=== PATIENT | female | born 1960 | race Caucasian/White ===

== ENCOUNTER 2016-03-13 14:43 | Emergency (ER) | payer BC ==
[2016-03-13 14:52] VITALS: BP 141/92; PULSE 80; TEMP 98; BMI 24.2
[2016-03-13] MEDS ORDERED: OXYCODONE/APAP 5/325MG COMBO TABLET PO ONE (15:59)
[2016-03-13] MEDS ORDERED: diazePAM 5 MG TABLET PO ONE (15:59)
[2016-03-13] MEDS ORDERED: ACETAMINOPHEN 325 MG TABLET (FP) PO ONE (16:00)
--- NOTE | 2016-03-13 16:09 | PDOC ---
History of Present Illness - General Chief Complaint: Back Pain Stated Complaint: BACK PAIN Time Seen by Provider: 03/13/16 15:47 History Source: Patient Exam Limitations: No Limitations - History of Present Illness Initial Comments: 03/13/16 16:10 55 y/o female presents to the ED with sudden onset of low back pain after bending over while taking off her socks. Patient states has had low back pain like this in the past but not to this extent and with no radiation down her right leg. Patient states did hear a popping sound when episode occurred and has been taking Motrin with no effect. Patient denies any saddle anesthesia, incontinence, weakness in the lower extremities, but does state pain is worsened with standing and ambulation. Patient states she is a constant aching to her lower back and sharp shocklike pains down her right leg with ambulation intermittently. Occurred: reports: just prior to arrival Severity: reports: moderate Pain Location: reports: back Associated Symptoms (Fall): trouble walking Past History - Past Medical History Allergies/Adverse Reactions: Allergies Allergy/AdvReac Type Severity Reaction Status Date / Time No Known Allergies Allergy Verified 03/13/16 14:51 Home Medications: Ambulatory Orders NK [No Known Home Medication] 01/30/14 Hypercholesterolemia: Yes Thyroid Disease: No - Immunization History Immunization Up to Date: Yes - Psycho/Social/Smoking Cessation Hx Anxiety: No Suicidal Ideation: No Smoking History: Never smoked Number of Cigarettes Smoked Daily: 2 If you are a former smoker, when did you quit?: 2010 Hx Alcohol Use: No Drug/Substance Use Hx: No Substance Use Type: None Patient Lives Alone: No Lives with/in: spouse/SO Trauma Specific PMHX - Complaint Specific PMHX Back Injury: Yes Review of Systems - Review of Systems Able to Perform ROS?: Yes Constitutional: No: Symptoms Reported HEENTM: No: Symptoms Reported Respiratory: No: Symptoms reported Cardiac (ROS): No: Symptoms Reported ABD/GI: No: Symptoms Reported : No: Symptoms Reported Musculoskeletal: Yes: Back Pain (lower), Muscle Pain (rt lower back) Neurological: No: Symptoms reported *Physical Exam - Vital Signs Last Vital Signs Temp Pulse Resp BP Pulse Ox 98.0 F 80 20 141/92 99 03/13/16 14:49 03/13/16 14:49 03/13/16 14:49 03/13/16 14:49 03/13/16 14:49 - Physical Exam General Appearance: Yes: Nourished, Appropriately Dressed, Mild Distress Neck: positive: Supple. negative: Decreased range of motion Cardiovascular: positive: Regular Rhythm, Regular Rate. negative: Murmur Gastrointestinal/Abdominal: positive: Soft. negative: Tenderness Musculoskeletal: positive: Vertebral Tenderness (l4-5 and right paraspinous muscle) Integumentary: positive: Normal Color, Warm, Moist. negative: Swelling, Ecchymosis Neurologic: positive: Motor Strength 5/5 (ambulatory) Medical Decision Making - Medical Decision Making 03/13/16 16:15 P with lower back pain radiating down her right leg. Pt with likely strain vs herniation. Pt ordered for percocet and valium. Pt also ordered for xray of lumbar spine 03/13/16 18:44 Pt became nauseated after the percocet. Pt ordered for zofran which did alleviate s/s. Pt s xray showed disc narrowing between l4-5 with spondylosis at multiple levels. Pt will be discharged home to follow up with ortho. Pt given rx for flexeril and tramdol. *DC/Admit/Observation/Transfer Diagnosis at time of Disposition: Osteoarthritis of lumbar spine Qualifiers: Spinal osteoarthritis complication: unspecified spinal osteoarthritis Qualified Code(s): M47.816 - Spondylosis without myelopathy or radiculopathy, lumbar region - Discharge Dispostion Disposition: HOME Condition at time of disposition: Good - Referrals Referrals: Richy Scott MD [Primary Care Provider] - Richy Park MD [Staff Physician] - - Patient Instructions Printed Discharge Instructions: DI for Low Back Pain Additional Instructions: Pleas take medication as needed for pain. Apply ice to area x 3 days. Follow up with referred physician. Rest.
[2016-03-13] MEDS ORDERED: ACETAMINOPHEN 325 MG TABLET (FP) ONE (16:10)
[2016-03-13] MEDS ORDERED: OXYCODONE/APAP 5/325MG COMBO TABLET ONE (16:11)
[2016-03-13] MEDS ORDERED: diazePAM 5 MG TABLET ONE (16:11)
[2016-03-13] MEDS ORDERED: ONDANSETRON *ODT* 4 MG TABLET ONE (17:40)
[2016-03-13] MEDS ORDERED: ONDANSETRON *ODT* 4 MG TABLET SL ONE (17:42)
== END 2016-03-13 18:56 | disposition home or self-care (01) ==
LOC: JERFT 14:43
DX: S39.012A Strain of muscle, fascia and tendon of lower back, initial encounter (principal); M47.896 Other spondylosis, lumbar region; X50.0XXA Overexertion from strenuous movement or load, initial encounter; Y93.89 Activity, other specified; Y92.032 Bedroom in apartment as the place of occurrence of the external cause
CPT/HCPCS: 72100-TC; 99281-25

== ENCOUNTER 2016-04-07 22:08 | Emergency (ER) | payer BC ==
[2016-04-07 22:24] VITALS: BP 140/86; PULSE 120; BMI 25.8
[2016-04-07] MEDS ORDERED: ACETAMINOPHEN 325 MG TABLET (FP) PO ONE (23:22)
[2016-04-07] MEDS ORDERED: ACETAMINOPHEN 325 MG TABLET (FP) ONE (23:26)
[2016-04-08] MEDS ORDERED: AZITHROMYCIN 250 MG TABLET (FP) PO ONE (00:33)
[2016-04-08] MEDS ORDERED: OSELTAMIVIR PHOSPHATE 75 MG CAPSULE PO ONE (00:33)
[2016-04-08] MEDS ORDERED: OSELTAMIVIR PHOSPHATE 75 MG CAPSULE ONE (00:36)
[2016-04-08 00:41] VITALS: TEMP 100.8
[2016-04-08] MEDS ORDERED: AZITHROMYCIN 250 MG TABLET (FP) ONE (00:42)
--- NOTE | 2016-04-08 00:46 | PDOC ---
History of Present Illness - General Chief Complaint: Cold Symptoms Stated Complaint: COLD SYMPTOMS Time Seen by Provider: 04/07/16 22:47 History Source: Patient Exam Limitations: No Limitations - History of Present Illness Initial Comments: 04/07/16 22:50 55yo Female patient presents to ED c/o fever (103), h/a, coughing, body ache, "lungs hurt," x 2 days getting worse. Patient states she got her flu shot this year as well. OTC Motrin take with minimal relief, last dose (12 noon). Patient c/o chest pain with deep breath. Denies any other complaints at this time. Timing/Duration: reports: constant, getting worse Severity: reports: moderate Possible Cause: Yes: illness exposure Modifying Factors: worse with: activity, albuterol inhaler, albuterol nebulizer , antibiotics, coughing, lying down, oxygen, rest, other Associated Symptoms: reports: cough, fever/chills, headache, muscle aches. denies: denies symptoms, chest pain/soreness, dizziness, earache, facial pain, lightheadedness, nasal congestion, nasal drainage, shortness of breath, sinus infection, sore throat, wheezing, other Past History - Travel Traveled outside of the country in the last 30 days: No Close contact w/someone who was outside of country & ill: No - Past Medical History Allergies/Adverse Reactions: Allergies Allergy/AdvReac Type Severity Reaction Status Date / Time codeine Allergy Verified 04/07/16 22:17 Home Medications: Ambulatory Orders Rosuvastatin Calcium [Crestor] 10 mg PO HS 04/07/16 Azithromycin [Zithromax -] 250 mg PO DAILY #4 tablet 04/08/16 Cyclobenzaprine HCl [Flexeril -] 10 mg PO TID PRN #21 tablet 04/08/16 Ibuprofen [Motrin -] 600 mg PO Q6H PRN #30 tablet 04/08/16 Oseltamivir Phosphate [Tamiflu -] 75 mg PO BID #10 capsule 04/08/16 Hypercholesterolemia: Yes Thyroid Disease: No - Immunization History Immunization Up to Date: Yes - Psycho/Social/Smoking Cessation Hx Anxiety: No Suicidal Ideation: No Smoking History: Never smoked Number of Cigarettes Smoked Daily: 2 If you are a former smoker, when did you quit?: 2010 Hx Alcohol Use: No Drug/Substance Use Hx: No Substance Use Type: None Respiratory Specific PMHX - Complaint Specific PMHX Angina: No Bronchitis: No Pneumonia: No Pulmonary Embolus: No TB (Tuberculosis): No Review of Systems - Review of Systems Able to Perform ROS?: Yes Is the patient limited Urdu proficient: No Constitutional: Yes: Fever, Weakness. No: Chills HEENTM: No: Blurred Vision, Double Vision, Nose Congestion, Throat Pain, Difficulty Swallowing Respiratory: Yes: Cough. No: Orthopnea, Shortness of Breath, Stridor, Wheezing , Productive cough, Hemoptysis Cardiac (ROS): Yes: Chest Pain. No: Lightheadedness, Palpitations, Syncope, Chest Tightness ABD/GI: No: Constipated, Diarrhea, Nausea, Poor Appetite, Poor Fluid Intake, Vomiting : No: Dysuria, Flank Pain, Hematuria Musculoskeletal: Yes: Back Pain, Joint Pain, Muscle Weakness Integumentary: No: Bruising, Rash Neurological: Yes: Headache. No: Numbness, Paresthesia, Seizure, Tremors, Weakness, Unsteady Gait, Ataxia, Dizziness All Other Systems: Reviewed and Negative *Physical Exam - Vital Signs Last Vital Signs Temp Pulse Resp BP Pulse Ox 103.2 F H 120 H 18 140/86 97 04/07/16 22:18 04/07/16 22:18 04/07/16 22:18 04/07/16 22:18 04/07/16 22:18 - Physical Exam General Appearance: Yes: Nourished, Appropriately Dressed, Apparent Distress, Moderate Distress. No: Mild Distress, Severe Distress HEENT: positive: EOMI, SRUTHI, Normal ENT Inspection, Normal Voice, Symmetrical, TMs Normal, Pharynx Normal. negative: Tonsillar Exudate, Tonsillar Erythema, TM Bulging, TM Dull, TM Erythema Neck: positive: Trachea midline, Supple. negative: Decreased range of motion, Stridor, Lymphadenopathy (R), Lymphadenopathy (L) Respiratory/Chest: positive: Lungs Clear, Other (Coarse (bronchial) breath sounds). negative: Crackles, Rales, Rhonchi, Stridor, Wheezing, Hyperresonant Cardiovascular: positive: Regular Rhythm, Regular Rate. negative: Edema, JVD, Murmur Gastrointestinal/Abdominal: positive: Normal Bowel Sounds, Soft. negative: Distended, Guarding, Rebound, Tenderness Lymphatic: negative: Adenopathy Musculoskeletal: positive: Normal Inspection. negative: CVA Tenderness Extremity: positive: Normal Capillary Refill, Normal Inspection, Normal Range of Motion. negative: Pedal Edema, Swelling Integumentary: positive: Normal Color, Dry, Warm. negative: Rash Neurologic: positive: chilling hood operator II-XII NML intact, Fully Oriented, Alert, Normal Mood/ Affect, Normal Response, Motor Strength 07/01 ED Treatment Course - ADDITIONAL ORDERS Additional order review: 04/07/16 23:40 Influenza Types A,B Antigen (JAYDEN) - Final Nasopharyngeal Swab - Final - RADIOLOGY Radiology Studies Ordered: Category Date Time Status CHEST PA & LAT [RAD] Stat Radiology 04/07/16 23:22 Taken - Medications Given in the ED: ED Medications Discontinued Medications Generic Name Dose Route Start Last Admin Trade Name Freq PRN Reason Stop Dose Admin Acetaminophen 650 mg 04/07/16 23:22 04/07/16 23:25 Tylenol - PO 04/07/16 23:23 650 mg ONCE ONE Administration *DC/Admit/Observation/Transfer Diagnosis at time of Disposition: Influenza, Bronchitis - Discharge Dispostion Disposition: HOME Condition at time of disposition: Stable Admit: No - Prescriptions Prescriptions: Cyclobenzaprine HCl [Flexeril -] 10 mg PO TID PRN #21 tablet PRN Reason: muscle pain Ibuprofen [Motrin -] 600 mg PO Q6H PRN #30 tablet PRN Reason: Mild Pain Oseltamivir Phosphate [Tamiflu -] 75 mg PO BID #10 capsule Azithromycin [Zithromax -] 250 mg PO DAILY #4 tablet - Patient Instructions Printed Discharge Instructions: Influenza, DI for Acute Bronchitis, DI for Muscle Weakness Additional Instructions: FOLLOW UP WITH YOUR PRIMARY CARE PROVIDER THIS WEEK. CALL TO SCHEDULE APPOINTMENT. TAKE MEDICATIONS PRESCRIBED. GET LOTS OF REST. NO WORK X 2 DAY, MUST BE WITHOUT FEVER TO RETURN TO WORK. IF FEVER PERSIST, FOLLOW UP WITH PCP. RETURN IF ANY CONCERNS FOR FURTHER EVALUATION. Print Language: LEBANESE - Post Discharge Activity Work/School Note: Back to Work
== END 2016-04-08 01:10 | disposition home or self-care (01) ==
LOC: JER 22:08
DX: J09.X2 Influenza due to identified novel influenza A virus with other respiratory manifestations (principal); J20.9 Acute bronchitis, unspecified
CPT/HCPCS: 71020-TC; 87804; 99282-25

== ENCOUNTER 2016-06-15 13:07 | Emergency (ER) | payer BC ==
[2016-06-15 13:14] VITALS: BP 140/81; PULSE 77; TEMP 98.1; BMI 25.8
[2016-06-15] MEDS ORDERED: KETOROLAC TROMETHAMINE 60 MG/2 ML VIAL IM ONE (14:01)
[2016-06-15] MEDS ORDERED: KETOROLAC TROMETHAMINE 60 MG/2 ML VIAL ONE (14:11)
--- NOTE | 2016-06-15 14:18 | PDOC ---
History of Present Illness - General Chief Complaint: Pain, Acute Stated Complaint: LT KNEE SWELLING Time Seen by Provider: 06/15/16 13:23 - History of Present Illness Initial Comments: 06/15/16 14:14 Pt. is a 55 y/o female with PMH of HDL, spinal arthritis and spinal stenosis, who presents to fast track with a complaint of L knee swelling. Pt. states that she was walking in a grocery store this morning when she felt a sudden "warmth" in her knee. Shortly after she felt the warmth, her knee became swollen and painful. She has pain when trying to put weight on the affected knee or when bending the knee. She iced her knee at home and came to the ED for further evaulation. Denies trauma, falling, sudden movements or history of gout. Past History - Past Medical History Allergies/Adverse Reactions: Allergies Allergy/AdvReac Type Severity Reaction Status Date / Time codeine Allergy Verified 06/15/16 13:13 Home Medications: Ambulatory Orders Rosuvastatin Calcium [Crestor] 10 mg PO ASDIR 06/15/16 Hypercholesterolemia: Yes Thyroid Disease: No - Immunization History Immunization Up to Date: Yes - Psycho/Social/Smoking Cessation Hx Anxiety: No Suicidal Ideation: No Smoking History: Never smoked Number of Cigarettes Smoked Daily: 2 If you are a former smoker, when did you quit?: 2010 Information on smoking cessation initiated: No Hx Alcohol Use: No Drug/Substance Use Hx: No Substance Use Type: None *Physical Exam - Vital Signs Last Vital Signs Temp Pulse Resp BP Pulse Ox 98.1 F 77 18 140/81 99 06/15/16 13:12 06/15/16 13:12 06/15/16 13:12 06/15/16 13:12 06/15/16 13:12 - Physical Exam Comments: 06/15/16 14:18 GENERAL: NAD, laying on bed with knee in extension. Obvious effusion MUSCULOSKELETAL Obvious gross swelling of left knee. L knee normal range of motion, but pain with flexion and extension. Normal range of motion at all other joints. No redness, or warmth coming from the knee. No bony deformities or tenderness. No CVA tenderness. EXTREMITIES: 2+ popliteal pulses. No cyanosis. No clubbing. No edema. No calf tenderness. SKIN: Warm and dry. Normal capillary refill. No rashes. No jaundice. NEUROLOGICAL: Alert, awake, appropriate. Cranial nerves 2-12 intact. No deficits to light touch and temperature in face, upper extremities and lower extremities. No motor deficits in the in face, upper extremities and lower extremities. Normoreflexic in the upper and lower extremities. Normal speech. Toes are down- going bilaterally. Gait is normal without ataxia. ED Treatment Course - RADIOLOGY Radiology Studies Ordered: Category Date Time Status KNEE 3 POS-LEFT [RAD] Stat Radiology 06/15/16 14:10 Ordered Medical Decision Making - Medical Decision Making 06/15/16 16:26 X-ray shows no acute fracture or trauma. Knee effusion most likely. Will refer to orthopedics for further management. Will discharge home with knee immobilizer and eliezer wrap. Explained discharge instructions to pt and she understands instructions. All questions answered at this time. *DC/Admit/Observation/Transfer Diagnosis at time of Disposition: Knee effusion, left - Discharge Dispostion Disposition: HOME Condition at time of disposition: Stable Admit: No - Referrals Referrals: iRchy Scott MD [Primary Care Provider] - Jesse Gant MD [Staff Physician] - - Patient Instructions Printed Discharge Instructions: DI for Knee Effusion Additional Instructions: You have a knee effusion. There is no evidence of fracture on x-ray. Wear an ELIEZER wrap on your knee for comfort and support. Ice and elevated the knee at home. Use ibuprofen as needed for pain not to exceed 3000mg a day. Follow up with orthopedics within one week. Return to the ED if the swelling gets worse, you develop fevers or chills, or if the pain becomes unbearable
== END 2016-06-15 15:08 | disposition home or self-care (01) ==
LOC: JERFT 13:07
PROC: 2W3MXYZ Immobilization of Left Lower Extremity using Other Device (ICD-10-PCS; principal; 2016-06-15)
DX: M25.462 Effusion, left knee (principal)
CPT/HCPCS: 73562-TC-LT; 99281-25

== ENCOUNTER 2016-07-25 16:19 | Emergency (ER) | payer BC ==
[2016-07-25 16:30] VITALS: TEMP 97.4; BMI 26.3
[2016-07-25] MEDS ORDERED: ASPIRIN 81 MG CHEWABLE TABLETS PO ONE (16:55)
[2016-07-25] MEDS ORDERED: NITROGLYCERIN SUBLINGUAL 1/150 0.4 MG TAB SL ONE (16:55)
--- NOTE | 2016-07-25 16:55 | PDOC ---
History of Present Illness <Shruthi Wei - Last Filed: 07/25/16 19:37> <RichyJuniekhushboo Weeks - Last Filed: 07/26/16 01:59> - General Chief Complaint: Chest Pain Stated Complaint: CHEST PAIN Time Seen by Provider: 07/25/16 16:48 - History of Present Illness Initial Comments: 07/25/16 19:37 Patient is a 55 year old female with significant medical hx of HLD who is presenting to the ED with chest pain, diaphoresis and nausea. Today the patient was a passenger in a car when she developed a sudden onset of left sided chest pain at 3:18 PM. She states that since then, her chest pain has been constant and radiating to her left jaw and left arm. Patient reports her chest pain is constant with intermittent episodes of sharp, shooting pain. The patient reports associated left facial numbness/tingling, nausea, diaphoresis, and shortness of breath. She denies any vomiting, cough, or lightheadedness. Patient had recent appointment with dynamics ax solution architect a few weeks ago for palpitations and abnormal ECG. The patient is scheduled to have upcoming stress test and echocardiogram. Surgical Hx: hysterectomy Social Hx: Former tobacco smoker, quit 5 years ago after smoking for 30-40 years. PCP: Richy Scott MD [employer] Pak Machine Operator: Jesse Saleem MD ([facility]) (Shruthi Wei) Past History <Shruthi Wei - Last Filed: 07/25/16 19:37> - Past Medical History Hypercholesterolemia: Yes Thyroid Disease: No - Immunization History Immunization Up to Date: Yes - Psycho/Social/Smoking Cessation Hx Anxiety: No Suicidal Ideation: No Smoking History: Never smoked Have you smoked in the past 12 months: No Number of Cigarettes Smoked Daily: 2 If you are a former smoker, when did you quit?: 2010 Information on smoking cessation initiated: No Hx Alcohol Use: No Drug/Substance Use Hx: No Substance Use Type: None <Junie Lockhart - Last Filed: 07/26/16 01:59> - Past Medical History Allergies/Adverse Reactions: Allergies Allergy/AdvReac Type Severity Reaction Status Date / Time codeine Allergy Verified 07/25/16 16:25 Home Medications: Ambulatory Orders Rosuvastatin Calcium [Crestor] 10 mg PO ASDIR 06/15/16 Cardiac Specific PMH - Complaint Specific PMHX Angina: No Pulmonary Embolus: No <Junie Lockhart - Last Filed: 07/26/16 01:59> Review of Systems <Shruthi Wei - Last Filed: 07/25/16 19:37> <Junie Lockhart - Last Filed: 07/26/16 01:59> - Review of Systems Comments:: 07/25/16 19:40 CONSTITUTIONAL: Present: diaphoresis Absent: fever, chills, generalized weakness, malaise, loss of appetite HEENT: Absent: rhinorrhea, nasal congestion, throat pain, throat swelling, difficulty swallowing, mouth swelling, ear pain, eye pain, visual changes CARDIOVASCULAR: Present: chest pain with radiation to jaw and left arm Absent: syncope, palpitations, irregular heart rate, lightheadedness, peripheral edema RESPIRATORY: Present: shortness of breath Absent: cough, dyspnea with exertion, orthopnea, wheezing, stridor, hemoptysis GASTROINTESTINAL: Present: nausea Absent: abdominal pain, abdominal distension, vomiting, diarrhea, constipation, melena, hematochezia GENITOURINARY: Absent: dysuria, frequency, urgency, hesitancy, hematuria, flank pain, genital pain MUSCULOSKELETAL: Absent: myalgia, arthralgia, joint swelling SKIN: Absent: rash, itching, pallor HEMATOLOGIC/IMMUNOLOGIC: Absent: easy bleeding, easy bruising, lymphadenopathy, frequent infections ENDOCRINE: Absent: unexplained weight gain, unexplained weight loss, heat intolerance, cold intolerance NEUROLOGIC: Present: left sided facial tingling and numbness Absent: headache, focal weakness, unsteady gait, seizure, mental status changes , bladder or bowel incontinence. PSYCHIATRIC: Absent: anxiety, depression, suicidal or homicidal ideation, hallucinations (EribertoShruthi) *Physical Exam <Shruthi Wei - Last Filed: 07/25/16 19:37> <Junie Lockhart - Last Filed: 07/26/16 01:59> - Vital Signs Last Vital Signs Temp Pulse Resp BP Pulse Ox 97.4 F L 90 14 121/82 98 07/25/16 21:53 07/26/16 01:40 07/26/16 01:40 07/26/16 01:40 07/26/16 01:40 - Physical Exam Comments: 07/25/16 19:42 GENERAL: Well developed, well nourished. Awake and alert. No acute distress. HEENT: Normocephalic, atraumatic. PERRLA, EOMI. No conjunctival pallor. Sclera are non- icteric. Moist mucous membranes. Oropharynx is clear. NECK: Supple. Full ROM. No JVD. Carotid pulses 2+ and symmetric, without bruits. No thyromegaly. No lymphadenopathy. CARDIOVASCULAR: Regular rate and rhythm. No murmurs, rubs, or gallops. Distal pulses are 2+ and symmetric. PULMONARY: No evidence of respiratory distress. Lungs clear to auscultation bilaterally. No wheezing, rales or rhonchi. ABDOMINAL: Protuberant. Soft. Non-tender. Non-distended. No rebound or guarding. No organomegaly. Normoactive bowel sounds. MUSCULOSKELETAL: Normal range of motion at all joints. No bony deformities or tenderness. No CVA tenderness. EXTREMITIES: No cyanosis. No clubbing. No edema. No calf tenderness. SKIN: Warm and dry. Normal capillary refill. No rashes. No jaundice. NEUROLOGICAL: Alert, awake, appropriate. Cranial nerves 2-12 intact. Normal speech. Gait is normal without ataxia. PSYCHIATRIC: Cooperative. Good eye contact. Appropriate mood and affect. (Shruthi Wei) ED Treatment Course - LABORATORY CBC & Chemistry Diagram: 07/25/16 18:20 07/25/16 18:27 <Shruthi Wei - Last Filed: 07/25/16 19:37> - LABORATORY CBC & Chemistry Diagram: 07/25/16 18:20 07/25/16 18:27 <Junie Lockhart - Last Filed: 07/26/16 01:59> - ADDITIONAL ORDERS Additional order review: Laboratory Results 07/26/16 07/25/16 07/25/16 00:17 18:27 18:20 INR 1.03 Sodium 139 Potassium 4.8 D Chloride 103 Carbon Dioxide 28 Anion Gap 8 BUN 17 Creatinine 0.8 Creat Clearance w eGFR > 60 Random Glucose 89 Calcium 10.2 H Magnesium 2.8 H Total Bilirubin 0.4 D AST 30 D ALT 43 D Alkaline Phosphatase 123 H Creatine Kinase 111 119 Troponin I < 0.02 < 0.02 Total Protein 8.0 Albumin 4.3 Triglycerides 367 H Cholesterol 232 H Total LDL Cholesterol 132 H HDL Cholesterol 60 05/29/17 18:20 RBC 4.70 MCV 90.2 MCHC 34.0 RDW 13.0 MPV 7.9 Neutrophils % 57.6 D Lymphocytes % 33.3 D Monocytes % 6.9 Eosinophils % 1.4 Basophils % 0.8 - RADIOLOGY Radiology Studies Ordered: Category Date Time Status CHEST X-RAY PORTABLE* [RAD] Stat Radiology 07/25/16 16:55 Taken - Medications Given in the ED: ED Medications Discontinued Medications Generic Name Dose Route Start Last Admin Trade Name Laxmi PRN Reason Stop Dose Admin Al Hydroxide/Mg Hydroxide 30 ml 07/25/16 16:56 07/25/16 17:10 Mylanta Oral Suspension - PO 07/25/16 16:57 30 ml ONCE ONE Administration Aspirin 162 mg 07/25/16 16:55 07/25/16 17:10 Asa - PO 07/25/16 16:56 162 mg ONCE ONE Administration Nitroglycerin 0.4 mg 07/25/16 16:55 07/25/16 17:10 Nitrostat - SL 07/25/16 16:56 0.4 mg ONCE ONE Administration Medical Decision Making <Shruthi Wei - Last Filed: 07/25/16 19:37> <Junie Lockhart - Last Filed: 07/26/16 01:59> - Medical Decision Making 07/26/16 01:49 -repeat Blood pressure is about 121/80 Patient has been chest pain-free shortly after her arrival. She DENIES ever being short of breath HPI she has had a h/o palpitations over past months and has an appt for ECHO and STRESS TEST in a few weeks PMH hyperlipidemia on crestor Second EKG, unchanged from prior - cxr no ptx,no effusions,no congestion,infiltrates - 2 sets of negative cardiac enzymes 07/26/16 01:56 plan- follow up with cardilogist -pt to call her dynamics ax solution architect and try to be seen this week (Junie Lockhart) *DC/Admit/Observation/Transfer <Shruthi Wei - Last Filed: 07/25/16 19:37> <Junie Lockhart - Last Filed: 07/26/16 01:59> Diagnosis at time of Disposition: Chest pain Qualifiers: Chest pain type: other chest pain Qualified Code(s): R07.89 - Other chest pain ; R07.8 - Other chest pain - Discharge Dispostion Disposition: HOME Condition at time of disposition: Stable - Referrals Referrals: Richy Scott MD [Primary Care Provider] - - Patient Instructions Printed Discharge Instructions: DI for Chest Pain Additional Instructions: please call your dynamics ax solution architect and see if you can see him earlier that your scheduled appointment please return if you have any worsening symptoms - Attestations Scribe Attestion: 07/25/16 19:42 Documentation prepared by Shruthi Wei, acting as medical cost consultant for Junie Lockhart MD. (Shruthi Wei)
[2016-07-25] MEDS ORDERED: MAG HYDROX/AL HYDROX/SIMETH 30 ML UNIT-DOSE CUP PO ONE (16:56)
[2016-07-25] MEDS ORDERED: MAG HYDROX/AL HYDROX/SIMETH 30 ML UNIT-DOSE CUP ONE (17:11)
[2016-07-25] MEDS ORDERED: ASPIRIN 81 MG CHEWABLE TABLETS ONE (17:11)
[2016-07-25] MEDS ORDERED: NITROGLYCERIN SUBLINGUAL 1/150 0.4 MG TAB ONE (17:11)
[2016-07-25 18:29] LABS: BASOPHIL 0.8 % (0-2.0); EOSINOPHIL 1.4 % (0-4.5); MCH 30.7 pg (25.7-33.7); MEAN CELL VOLUME 90.2 fl (80-96); MEAN PLT VOLUME 7.9 fl (7.5-11.1); NEUTROPHILS 57.6 % (42.8-82.8); PLATELET COUNT 349 K/MM3 (134-434); WHITE BLOOD COUNT 9.7 K/mm3 (4.0-10.0)
[2016-07-25 18:41] LABS: INR 1.03 (0.82-1.09); PROTHROMBIN TIME (PATIENT) 11.3 SEC (9.98-11.88)
[2016-07-25 18:58] LABS: ALBUMIN 4.3 g/dl (3.4-5.0); ANION GAP 8 (8-16); BILIRUBIN,TOTAL 0.4 mg/dL (0.2-1.0); CALCIUM 10.2 mg/dL (8.5-10.1); CHOLESTEROL 232 mg/dL (50-200); CO2 28 mmol/L (21-32); COCKROFT - GAULT 93.8315; CREATININE 0.8 mg/dL (0.55-1.02); GLUCOSE,RANDOM 89 mg/dL (74-106); LDL CHOLESTEROL (ONLY SJRH) 132 mg/dL (5-100); MAGNESIUM 2.8 mg/dL (1.8-2.4); SGOT/AST 30 U/L (15-37); SGPT/ALT 43 U/L (12-78)
[2016-07-25 18:59] LABS: ALK PHOS 123 U/L (45-117); TROPONIN I < 0.02 ng/ml (0.00-0.05)
[2016-07-26 01:03] LABS: TROPONIN I < 0.02 ng/ml (0.00-0.05)
[2016-07-26 01:41] VITALS: BP 121/82; PULSE 90
--- NOTE | 2016-07-26 14:08 | EKG ---
Test Reason : Blood Pressure : / mmHG Vent. Rate : 096 BPM Atrial Rate : 096 BPM P-R Int : 176 ms QRS Dur : 102 ms QT Int : 372 ms P-R-T Axes : 031 012 035 degrees QTc Int : 469 ms NORMAL SINUS RHYTHM MINIMAL VOLTAGE CRITERIA FOR LVH, MAY BE NORMAL VARIANT BORDERLINE ECG WHEN COMPARED WITH ECG OF 30-JAN-2014 20:42, NO SIGNIFICANT CHANGE WAS FOUND Confirmed by KT DENNEY, ANGELO ([id number]) on 07/26/2016 2:07:35 PM Referred By: Confirmed By:ANGELO MERAZ MD
--- NOTE | 2016-07-26 14:14 | EKG ---
Test Reason : Blood Pressure : / mmHG Vent. Rate : 092 BPM Atrial Rate : 092 BPM P-R Int : 170 ms QRS Dur : 108 ms QT Int : 368 ms P-R-T Axes : 029 002 024 degrees QTc Int : 455 ms NORMAL SINUS RHYTHM MODERATE VOLTAGE CRITERIA FOR LVH, MAY BE NORMAL VARIANT BORDERLINE ECG WHEN COMPARED WITH ECG OF 30-JAN-2014 20:42, NO SIGNIFICANT CHANGE WAS FOUND Confirmed by ANGELO MERAZ MD ([id number]) on 07/26/2016 2:14:00 PM Referred By: Confirmed By:ANGELO MERAZ MD
== END 2016-07-26 02:09 | disposition home or self-care (01) ==
LOC: JER 16:19
DX: R07.89 Other chest pain (principal); E78.00 Pure hypercholesterolemia, unspecified
CPT/HCPCS: 36415; 71010-TC; 80053; 80061; 82550; 83721; 83735; 84484; 85025; 85610; 93005; 93010; 99285-25

== ENCOUNTER 2017-04-10 20:00 | Emergency (ER) | payer BC ==
--- NOTE | 2017-04-10 20:09 | PDOC ---
Rapid Medical Evaluation Time Seen by Provider: 04/10/17 20:08 Medical Evaluation: Allergies Allergy/AdvReac Type Severity Reaction Status Date / Time codeine Allergy Verified 07/25/16 16:25 04/10/17 20:08 The patient presents with a chief complaint of: Headache, dizziness for two days, no fever. Motrin with no resolve. H/O migraines. I have performed a brief in-person evaluation of this patient. Pertinent physical exam findings: vss, [unremarkable] I have ordered the following: [None] The patient will proceed to the ED for further evaluation. Discharge Disposition - Diagnosis Headache - Referrals - Patient Instructions - Post Discharge Activity
[2017-04-10 20:13] VITALS: BP 157/100; PULSE 83; TEMP 98.1; BMI 25.8
[2017-04-10] MEDS ORDERED: MECLIZINE HCL 25 MG TABLET (FP) PO ONE (20:40)
[2017-04-10] MEDS ORDERED: ACETAMINOPHEN 500 MG TABLET (FP) PO ONE (20:40)
--- NOTE | 2017-04-10 20:40 | PDOC ---
History of Present Illness - General Chief Complaint: Lightheaded Stated Complaint: HEADACHE Time Seen by Provider: 04/10/17 20:08 - History of Present Illness Initial Comments: 04/10/17 20:43 The patient is a 56 year old female with a history of HLD, HTN who presents for evaluation of dizziness and headache. The patient reports a 2 day history of intermittent dizziness worse with movement with associated intermittent headaches. She states that she had a sudden acute worsening of her headache today unresponsive to motrin prompting her presentation to the ED for evaluation. She denies any fevers, chills, chest pain, SOB, nausea, vomiting, abdominal pain, numbness, weakness or tingling, or changes with urination or bowel movements. Past History - Past Medical History Allergies/Adverse Reactions: Allergies Allergy/AdvReac Type Severity Reaction Status Date / Time codeine Allergy Verified 04/10/17 20:13 Home Medications: Ambulatory Orders Rosuvastatin Calcium [Crestor] 10 mg PO ASDIR 06/15/16 Butalb/Acetaminophen/Caffeine [Fioricet 50-300-40 mg Capsule] 1 each PO Q4H PRN #21 capsule 04/10/17 Meclizine HCl [Antivert -] 25 mg PO TID PRN #21 tablet 04/10/17 Cardiac Disorders: Yes (LBBB) COPD: No Hypercholesterolemia: Yes Thyroid Disease: No - Immunization History Immunization Up to Date: Yes - Suicide/Smoking/Psychosocial Hx Smoking History: Never smoked Have you smoked in the past 12 months: No Number of Cigarettes Smoked Daily: 2 If you are a former smoker, when did you quit?: 2010 Information on smoking cessation initiated: No Hx Alcohol Use: No Drug/Substance Use Hx: No Substance Use Type: None Review of Systems - Review of Systems Comments:: 04/10/17 20:45 Constitutional: Fatigue. No fevers, chills, malaise HEENT: No Rhinorrhea, nasal congestion, visual changes Cardiovascular: No chest pain, syncope, palpitations, lightheadedness Respiratory: No Cough, SOB, Hemoptysis, Gastrointestinal: No Abdominal pain, Nausea, Vomiting, Constipation, Diarrhea, Melena Genitourinary: No Dysuria, Frequency, Urgency, Hesitancy, Hematuria, Flank pain Musculoskeletal: No Myalgia, arthralgia Skin: No rashes, itching, bruising, pallor Neurologic: Headache, Dizziness. No Numbness, Weakness, or Tingling Psychiatric: No Hallucinations. No SI or HI *Physical Exam - Vital Signs Last Vital Signs Temp Pulse Resp BP Pulse Ox 98.1 F 83 18 157/100 97 04/10/17 20:10 04/10/17 20:10 04/10/17 20:10 04/10/17 20:10 04/10/17 20:10 - Physical Exam Comments: 04/10/17 20:46 General Appearance: Nourished. No Apparent Distress HEENT: EOMI, SRUTHI. Right beating horizontal nystagmys noted on exam. No Pharyngeal Erythema, Tonsillar Exudate, Tonsillar Erythema Neck: No Cervical Lymphadenopathy Respiratory/Chest: Lungs Clear, Normal Breath Sounds. No Crackles, Rales, Rhonchi, Wheezing Cardiovascular: Regular Rhythm, Regular Rate. No Murmur, Gallops, Rubs Gastrointestinal/Abdominal: Normal Bowel Sounds, Soft. No Guarding, Rebound, Tenderness Musculoskeletal: No CVA Tenderness Extremity: Normal Capillary Refill Integumentary: Normal Color, Dry, Warm Neurologic: marketing director II-XII NML intact, Fully Oriented, Alert, Normal Mood/Affect, Normal Response, Motor Strength 5/5. Normal Finger to Nose and Heel to [place] ED Treatment Course - RADIOLOGY Radiology Studies Ordered: Category Date Time Status HEAD CT WITHOUT CONTRAST [CT] Stat CT Scan 04/10/17 20:39 Ordered Medical Decision Making - Medical Decision Making 04/10/17 20:47 The patient is a 56 year old female with a history of HLD, HTN who presents for evaluation of dizziness and headache. Differential includes but is not limited to: Intracranial process, vertigo, migraine. Given the patient's symptoms and physical exam, it is likely the patient's symptoms are due to a combination of vertigo and a migraine headache. However, given the acute onset of her symptoms we will obtain a head CT to evaluate for other etiologies. We will treat her in the meantime with tylenol and meclazine. We will continue to monitor and reassess. 04/10/17 23:[address] is unremarkable as read by our radiologist. It is likely her symptoms are due to a combination of migraine headache and vertigo. We are comfortable discharging the patient home with primary care provider and neurology follow up. We discussed the results and the plan with the patient who voiced understanding and is agreeable with the plan. *DC/Admit/Observation/Transfer Diagnosis at time of Disposition: Vertigo Headache Qualifiers: Headache type: unspecified Headache chronicity pattern: unspecified pattern Intractability: not intractable Qualified Code(s): R51 - Headache - Discharge Dispostion Disposition: HOME Condition at time of disposition: Good Admit: No - Prescriptions Prescriptions: Butalb/Acetaminophen/Caffeine [Fioricet 50-300-40 mg Capsule] 1 each PO Q4H PRN #21 capsule PRN Reason: Headache Meclizine HCl [Antivert -] 25 mg PO TID PRN #21 tablet PRN Reason: Dizziness - Referrals Referrals: Richy Scott MD [Primary Care Provider] - Jm Bennett MD [Staff Physician] - - Patient Instructions Printed Discharge Instructions: DI for Migraine, DI for Vertigo Additional Instructions: Please return to the ER if you experience concerning or worsening symptoms including worsening headache, vomiting, fever, numbness, or weakness. You imaging results were normal here in the ER. Your symptoms are likely due to a combination of migraine headache and vertigo. Please call to schedule a follow up appointment with your primary care provider within 3-5 days to discuss your ER visit. - Post Discharge Activity
--- NOTE | 2017-04-10 21:04 | PDOC ---
Attending Attestation - [facility] HPI: 04/10/17 21:06 The patient is a 56 year old female, with a significant past medical history hypertension and hyperlipidemia, who presents to the emergency department with dizziness and headache for approximately 2 days. Patient reports her dizziness has been intermittent, with associated headache. Today, patient reports her headache came on suddenly and more severe. She describes her headache as a burning sensation at the top her head. Patient states her dizziness has also worsened today. Patient reports her symptoms are exacerbated with movement of her head. Patient reports taking Motrin with minimum relief. She denies any head trauma, changes in vision, photophobia, LOC, changes in gait, or lightheadedness. She denies any nausea or vomiting. She denies any fever or chills. She denies any chest pain, shortness of breath, diaphoresis, or palpitations. She denies any recent travel or sick contacts. Patient reports in the past she's had an ENT work-up done, for evaluation of her vertigo, which was negative. Today patient came in out of concern, because her sister has had two brain aneurysm's in the past. Allergies: Codeine Past Surgical History: Hysterectomy Social History: Former smoker. No ETOH or recreational drug use PCP: Dr. Scott - Physicial Exam PE: 04/10/17 21:06 GENERAL: Well-appearing, well-nourished. No apparent distress. HEENT: Normocephalic, atraumatic. PERRLA. Right beating(2 beats) horizontal nystagmus. No conjunctival pallor. Sclera are non-icteric. Moist mucous membranes. Oropharynx is clear. CARDIOVASCULAR: Normal S1, S2. Regular rate and rhythm. PULMONARY: Clear to auscultation bilaterally. ABDOMEN: Soft, non-distended, non-tender. EXTREMITIES: Normal ROM in all four extremities. No gross deformities. SKIN: Warm, dry. No rash NEUROLOGICAL: Alert, awake, appropriate. Cranial nerves 2-12 intact. No deficits to light touch and temperature in face, upper extremities and lower extremities. No motor deficits in the in face, upper extremities and lower extremities. Normoreflexic in the upper and lower extremities. Normal speech. Toes are down- going bilaterally. Gait is normal without ataxia. - Medical Decision Making 04/10/17 21:06 Documentation prepared by Kaykay Dumont, acting as medical care evaluation specialist for Junie Lockhart MD. <Kaykay Dumont - Last Filed: 04/10/17 22:54> - Resident Resident Name: Dakota Stevenson - ED Attending Attestation I have performed the following: I have examined & evaluated the patient, The case was reviewed & discussed with the resident, I agree w/resident's findings & plan, Exceptions are as noted - Medical Decision Making BP improved,symptoms resolved pt discharged home 04/11/17 02:14 <Junie Lockhart - Last Filed: 04/11/17 02:15>
[2017-04-10] MEDS ORDERED: MECLIZINE HCL 25 MG TABLET (FP) ONE (21:15)
[2017-04-10] MEDS ORDERED: ACETAMINOPHEN 325 MG TABLET (FP) ONE (21:15)
[2017-04-10] MEDS ORDERED: ACETAMINOPHEN/CAFFEINE/BUTALBITAL 1 TAB PO ONE (22:55)
[2017-04-10] MEDS ORDERED: ACETAMINOPHEN/CAFFEINE/BUTALBITAL 1 TAB ONE (23:01)
== END 2017-04-10 23:11 | disposition home or self-care (01) ==
LOC: JER 20:00
DX: R51 Headache (principal); R42 Dizziness and giddiness; I10 Essential (primary) hypertension; E78.00 Pure hypercholesterolemia, unspecified
CPT/HCPCS: 70450-TC; 99281-25

== ENCOUNTER 2017-05-20 02:35 | Emergency (ER) | payer BC ==
[2017-05-20 02:49] VITALS: BP 141/81; PULSE 118; TEMP 97.9; BMI 25.8
[2017-05-20] MEDS ORDERED: DEXAMETHASONE LIQUID 0.5 MG/5 ML 240 ML BULK BOTTLE PO ONE (03:32)
[2017-05-20] MEDS ORDERED: ACETAMINOPHEN 650 MG/20.3 ML ORAL SOLUTION (CUPS) PO ONE (03:32)
[2017-05-20] MEDS ORDERED: ACETAMINOPHEN 325 MG TABLET (FP) ONE (03:36)
[2017-05-20] MEDS ORDERED: DEXAMETHASONE SOD PHOSPHATE 10 MG/1 ML VIAL ONE (03:36)
--- NOTE | 2017-05-20 03:41 | PDOC ---
History of Present Illness - General Chief Complaint: Pain, Acute Stated Complaint: FEVER,ABDOMINAL PAIN Time Seen by Provider: 05/20/17 03:21 History Source: Patient Exam Limitations: No Limitations - History of Present Illness Initial Comments: 05/20/17 03:34 This is a 56-year-old woman with past medical history of hyperkalemia lipidemia who presents emergency department with 1 day of throat pain, right ear pain, left flank pain radiating to the left lower quadrant, nausea, vomiting and temperature of 104F. Patient states she was fine until approximately 10 AM all symptoms began to start. Patient has tried taking Tylenol [id number] with minimal relief of symptoms. Patient denies cough, shortness of breath, chest pain, hematuria, dysuria, rectal bleeding. Past History - Past Medical History Allergies/Adverse Reactions: Allergies Allergy/AdvReac Type Severity Reaction Status Date / Time codeine Allergy Verified 05/20/17 02:48 Home Medications: Ambulatory Orders Rosuvastatin Calcium [Crestor] 10 mg PO ASDIR 06/15/16 Butalb/Acetaminophen/Caffeine [Fioricet 50-300-40 mg Capsule] 1 each PO Q4H PRN #21 capsule 04/10/17 Meclizine HCl [Antivert -] 25 mg PO TID PRN #21 tablet 04/10/17 Amoxicillin - [Amoxicillin 500mg Capsule -] 500 mg PO BID #20 capsule 05/20/17 Cardiac Disorders: Yes (LBBB) COPD: No Hypercholesterolemia: Yes Thyroid Disease: No - Immunization History Immunization Up to Date: Yes - Suicide/Smoking/Psychosocial Hx Smoking History: Never smoked Have you smoked in the past 12 months: No Number of Cigarettes Smoked Daily: 2 If you are a former smoker, when did you quit?: 2010 Information on smoking cessation initiated: No Hx Alcohol Use: No Drug/Substance Use Hx: No Substance Use Type: None Review of Systems - Review of Systems Able to Perform ROS?: Yes Is the patient limited Sinhala proficient: No Constitutional: Yes: See HPI HEENTM: Yes: See HPI Respiratory: No: Symptoms reported Cardiac (ROS): No: Symptoms Reported ABD/GI: Yes: See HPI : Yes: See HPI Musculoskeletal: No: Symptoms Reported Integumentary: No: Symptoms Reported Neurological: No: Symptoms reported Endocrine: No: Symptoms Reported Hematologic/Lymphatic: No: Symptoms Reported *Physical Exam - Vital Signs Last Vital Signs Temp Pulse Resp BP Pulse Ox 97.9 F 118 H 20 141/81 97 05/20/17 02:48 05/20/17 02:48 05/20/17 02:48 05/20/17 02:48 05/20/17 02:48 - Physical Exam General Appearance: Yes: Appropriately Dressed. No: Apparent Distress HEENT: positive: TMs Normal, Pharyngeal Erythema, Tonsillar Exudate, Tonsillar Erythema. negative: Muffled/Hoarse voice, Nasal Congestion, Rhinorrhea, Sinus Tenderness Neck: positive: Trachea midline, Supple. negative: Stridor Respiratory/Chest: positive: Lungs Clear, Normal Breath Sounds. negative: Respiratory Distress, Accessory Muscle Use Cardiovascular: positive: Regular Rhythm, S1, S2, Tachycardia. negative: Murmur Gastrointestinal/Abdominal: positive: Normal Bowel Sounds, Soft. negative: Tender Musculoskeletal: positive: Normal Inspection. negative: CVA Tenderness Extremity: positive: Normal Inspection, Normal Range of Motion. negative: Tender Integumentary: positive: Normal Color, Dry, Warm Neurologic: positive: Alert, Normal Response, Motor Strength 5/5 ED Treatment Course - LABORATORY CBC & Chemistry Diagram: 05/20/17 03:40 05/20/17 03:40 Medical Decision Making - Medical Decision Making 05/20/17 03:38 A/P: 56-year-old female with 1 day of fevers, sore throat, right ear pain, left flank pain, left lower quadrant pain, nausea, vomiting Oropharynx with pharyngeal and tonsillar erythema. Tonsillar exudate present Tender anterior cervical lymph nodes present Halitosis present Lungs clear to auscultation bilaterally. Abdomen soft nontender nondistended. No CVA tenderness present. Patient with acute pharyngitis given symptoms I will rule out urinary tract infection and renal stone Given Centor score of 3, I will send rapid strep testing. UA, urine culture, CBC, BMP Decadron 10 mg by mouth now Tylenol 650 mg by mouth now Reassess 05/20/17 06:51 Rapid strep testing positive for group A strep. I'll treat the patient with amoxicillin 500 mg twice a day for the next [address] as read by Dr. Call: No nephrolithiasis, ureterolithiasis or obstructive uropathy. No bladder calculi. Unremarkable pancreas and gallbladder. No bowel obstruction, colitis, free fluid or free of. Normal appendix. Diverticulosis: Without acute diverticulitis. Hepatomegaly. Steatosis liver with areas of probable focal fatty sparing. Hysterectomy *DC/Admit/Observation/Transfer Diagnosis at time of Disposition: Strep pharyngitis - Discharge Dispostion Disposition: HOME Condition at time of disposition: Stable Admit: No - Prescriptions Prescriptions: Amoxicillin - [Amoxicillin 500mg Capsule -] 500 mg PO BID #20 capsule - Referrals Referrals: Richy Scott MD [Primary Care Provider] - - Patient Instructions Printed Discharge Instructions: DI for Strep Throat Additional Instructions: Take amoxicillin as prescribed. Salt water garggles. Throw away your toothbrush in 3 days and start using a new toothbrush. No sharing of drinks, utensils or toothbrushes. Take Motrin as directed by independent marketing consultant's instructions. Return to ED for worsening fevers, worsening sore throat, chest pain, shortness of breath or any other concerns. - Post Discharge Activity
[2017-05-20 04:05] LABS: URINE APPEARANCE CLEAR; URINE BILIRUBIN NEGATIVE (<2.0 mg/dL); URINE BLOOD 2+ (NEGATIVE); URINE COLOR LTYELLOW; URINE GLUCOSE (UA) NEGATIVE (NEGATIVE); URINE KETONE NEGATIVE (NEGATIVE); URINE LEUK ESTERASE NEGATIVE (NEGATIVE); URINE NITRITE NEGATIVE (NEGATIVE); URINE PROTEIN NEGATIVE (NEGATIVE); URINE UROBILINOGEN NEGATIVE mg/dL (0.2-1.0)
[2017-05-20 04:06] LABS: BASO % 0.4 % (0-2.0); HEMATOCRIT 39.5 % (32.4-45.2); HEMOGLOBIN 13.5 GM/dL (10.7-15.3); LYMPH % 5.8 % (8-40); MCH 30.8 pg (25.7-33.7); MCHC 34.1 g/dl (32.0-36.0); MEAN CELL VOLUME 90.5 fl (80-96); MEAN PLT VOLUME 8.1 fl (7.5-11.1); MONO % 6.8 % (3.8-10.2); PLATELET COUNT 308 K/MM3 (134-434); RBC 4.36 M/mm3 (3.60-5.2); RDW 13.6 % (11.6-15.6); WHITE BLOOD COUNT 17.8 K/mm3 (4.0-10.0)
[2017-05-20 04:39] LABS: ANION GAP 10 (8-16); BLOOD UREA NITROGEN 13 mg/dL (7-18); CALCIUM 9.2 mg/dL (8.5-10.1); CHLORIDE 102 mmol/L (98-107); CO2 22 mmol/L (21-32); CREATININE 0.8 mg/dL (0.55-1.02); SODIUM 134 mmol/L (136-145)
[2017-05-20 04:47] LABS: EPI CELLS RARE /HPF (FEW); URINE MUCUS RARE
[2017-05-20 05:00] LABS: GLUCOSE,RANDOM 125 mg/dL (74-106)
[2017-05-20 05:53] LABS: POTASSIUM 4.1 mmol/L (3.5-5.1)
[2017-05-20] MEDS ORDERED: KETOROLAC TROMETHAMINE 30 MG/1 ML VIAL IVPUSH ONE (06:09)
[2017-05-20] MEDS ORDERED: KETOROLAC TROMETHAMINE 30 MG/1 ML VIAL ONE (06:09)
== END 2017-05-20 07:02 | disposition home or self-care (01) ==
LOC: JER 02:35
PROC: 3E0233Z Introduction of Anti-inflammatory into Muscle, Percutaneous Approach (ICD-10-PCS; principal; 2017-05-20)
DX: J02.0 Streptococcal pharyngitis (principal); B95.0 Streptococcus, group A, as the cause of diseases classified elsewhere; E78.00 Pure hypercholesterolemia, unspecified
CPT/HCPCS: 36415; 74176; 80048; 81003; 81015; 85025; 87070; 87077; 87086; 87430; 99283-25

== ENCOUNTER 2018-08-22 17:00 | Emergency (ER) | payer BC ==
--- NOTE | 2018-08-22 17:11 | PDOC ---
Rapid Medical Evaluation Time Seen by Provider: 08/22/18 17:06 Medical Evaluation: Allergies Allergy/AdvReac Type Severity Reaction Status Date / Time codeine Allergy Verified 05/20/17 02:48 08/22/18 17:06 HPI: L sided neck pain with L arm radicular symptoms PE: No gross deficits ORDERS: Nothing Discharge Disposition - Diagnosis Cervical radiculopathy - Referrals - Patient Instructions - Post Discharge Activity
[2018-08-22 17:13] VITALS: BP 132/73; PULSE 91; TEMP 98.5; BMI 27.1
--- NOTE | 2018-08-22 18:11 | PDOC ---
History of Present Illness - General Chief Complaint: Pain, Acute Stated Complaint: PAIN ON LEFT SIDE Time Seen by Provider: 08/22/18 17:06 History Source: Patient Exam Limitations: No Limitations - History of Present Illness Initial Comments: 08/22/18 18:12 intermittent neck sprain and spasm for a few weeks. States past 2 days is progressively worsened where has radiating numbness and tingling down left nellie up to scalp. 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 Has taken no medication for relief of same. Denies chest pain or palpitations, no fevers,no respiratory illness. Occurred: reports: last week Severity: reports: mild, moderate Pain Location: reports: neck Modifying Factors: improves with: None Loss of Consciousness: no loss of consciousness Associated Symptoms (Fall): denies symptoms Past History - Travel Traveled outside of the country in the last 30 days: No Close contact w/someone who was outside of country & ill: No - Past Medical History Allergies/Adverse Reactions: Allergies Allergy/AdvReac Type Severity Reaction Status Date / Time codeine Allergy Verified 08/22/18 17:09 Home Medications: Ambulatory Orders Cyclobenzaprine HCl 10 mg PO Q8H PRN #14 tablet 08/22/18 Lisinopril 10 mg PO DAILY 08/22/18 Naproxen [Naprosyn -] 500 mg PO BID #30 tablet 08/22/18 Rosuvastatin Calcium [Crestor] 10 mg PO DAILY 08/22/18 Cardiac Disorders: Yes (LBBB) COPD: No Hypercholesterolemia: Yes Thyroid Disease: No - Immunization History Immunization Up to Date: Yes - Suicide/Smoking/Psychosocial Hx Smoking History: Never smoked Have you smoked in the past 12 months: No Number of Cigarettes Smoked Daily: 2 If you are a former smoker, when did you quit?: 2010 Information on smoking cessation initiated: No Hx Alcohol Use: No Drug/Substance Use Hx: No Substance Use Type: None Trauma Specific PMHX - Complaint Specific PMHX Back Injury: Yes Review of Systems - Review of Systems Able to Perform ROS?: Yes Is the patient limited Arabic proficient: Yes Constitutional: Yes: Symptoms Reported, See HPI. No: Fever HEENTM: No: Symptoms Reported Respiratory: No: Symptoms reported Musculoskeletal: Yes: Symptoms Reported, See HPI, Muscle Pain, Muscle Weakness Integumentary: Yes: Symptoms Reported, See HPI Neurological: Yes: Symptoms reported (primarily scalp), Headache *Physical Exam - Vital Signs Last Vital Signs Temp Pulse Resp BP Pulse Ox 98.5 F 91 H 18 132/73 97 08/22/18 17:09 08/22/18 17:09 08/22/18 17:09 08/22/18 17:09 08/22/18 17:09 - Physical Exam General Appearance: Yes: Nourished, Appropriately Dressed, Apparent Distress, Mild Distress HEENT: positive: SRUTHI, Normal ENT Inspection, TMs Normal, Pharynx Normal Neck: positive: Tender, Other (tight tense musculature of the paravertebral spinous muscles, worse on the left side than the right and spasm is palpable. Has no bone tenderness crepitus or step-offs. Range of motion is mildly limited secondary to the spasm. With pressure to triggerpoints able to reproduce both scalp headache pain and left arm pain.). negative: Supple Respiratory/Chest: positive: Lungs Clear Gastrointestinal/Abdominal: positive: Soft. negative: Tender Musculoskeletal: positive: Normal Inspection, Muscle Spasm Extremity: positive: Normal Capillary Refill, Normal Inspection, Normal Range of Motion. negative: Tender Integumentary: positive: Normal Color Neurologic: positive: pulp screen operator II-XII NML intact, Fully Oriented, Alert, Normal Response *DC/Admit/Observation/Transfer Diagnosis at time of Disposition: Cervical radiculopathy - Discharge Dispostion Disposition: HOME Condition at time of disposition: Stable Decision to Admit order: No - Referrals Referrals: Richy Scott MD [Primary Care Provider] - - Patient Instructions Printed Discharge Instructions: DI for Cervical Muscle Strain Additional Instructions: Rest, no heavy lifting or exercise until pain is resolved Hot soaks to neck and low back as often as possible/hot showers or Jacuzzis No massage or therapy until spasm is gone Continue Naprosyn 500 mg tablet, 1 tablet every 8 hours for the next 3 days then as needed for pain and swelling Cyclobenzaprine 1-10mg every 8 hours as needed for spasm If not significant improvement within 24 hours with medication and rest regime, followup with private physician for change in medications and /or therapy. - Post Discharge Activity
== END 2018-08-22 18:21 | disposition home or self-care (01) ==
LOC: JERFT 17:00
DX: M54.12 Radiculopathy, cervical region (principal)
CPT/HCPCS: 99282-25

== ENCOUNTER 2019-01-02 11:02 | Day surgery (SDC) | payer BC ==
[2019-01-01 09:20] VITALS: BMI 27.4
--- NOTE | 2019-01-02 12:08 | HP ---
Satellite [facility] - Chief Complaint Chief Complaint: left hand pain/numbness - Past Medical History Allergies/Adverse Reactions: Allergies Allergy/AdvReac Type Severity Reaction Status Date / Time codeine Allergy Verified 01/02/19 11:42 - Current Medications Current Medications: Home Medications Medication Instructions Recorded Lisinopril 10 mg PO DAILY 08/22/18 Naproxen [Naprosyn -] 500 mg PO BID #30 tablet 08/22/18 Hydrocodone/Acetaminophen 1 each PO Q6H #12 tablet MDD 4 01/02/19 [Hydrocodone-Acetamin 5-325 mg] Satellite Physical Exam - Physical Examination Vital Signs: Vital Signs Period Temp Pulse Resp BP Sys/Herrmann Pulse Ox Last 24 Hr 97.5 F-97.5 F 83-83 20-20 138-138/92-92 96 General Appearance: Well Nourished, Well Developed, Alert & Oriented x3 ENT: Clear Lung: Normal air movement Heart: Regular rate & rhythm Extremities: Other (left hand- + tinels, + phalens, emg + cts) Neurological: Intact, Alert, Oriented Satellite Impression/Plan - Impression/Plan Impression: left cts Operative Procedure: left ctr Date to be Performed: 01/02/19
[2019-01-02] MEDS ORDERED: LIDOCAINE HCL 1%, 10 MG/ML (20ML VIAL) ONE (14:07)
[2019-01-02] MEDS ORDERED: BUPIVACAINE HCL/PF 0.5% (5 MG/ML) 30 ML VIAL IJ ONE ×2 (14:07→15:33)
[2019-01-02] MEDS ORDERED: PROPOFOL 20 ML ONE ×3 (14:11→15:11)
[2019-01-02] MEDS ORDERED: MIDAZOLAM HCL 2 MG/2 ML SINGLE DOSE VIAL ONE ×2 (14:11→15:12)
[2019-01-02] MEDS ORDERED: ceFAZolin SODIUM 1 GM VIAL ONE (15:21)
[2019-01-02] MEDS ORDERED: KETOROLAC TROMETHAMINE 30 MG/1 ML VIAL ONE (15:22)
[2019-01-02] MEDS ORDERED: LIDOCAINE HCL 1%, 10 MG/ML (50 mL VIAL) IJ ONE (15:33)
--- NOTE | 2019-01-02 16:09 | OP ---
Operative Note - Note: Operative Date: 01/02/19 Pre-Operative Diagnosis: left CTS Operation: left CTR, tenosynovectomy Post-Operative Diagnosis: Same as Pre-op Surgeon: Ghanshyam Mcguire Anesthesiologist/BOOKKEEPERS SUPERVISOR: Celia Valdez Anesthesia: Local, MAC Specimens Removed: tenosynovium Estimated Blood Loss (mls): 0 Drains, Volume Out (mls): 0 Blood Volume Replaced (mls): 0 Fluid Volume Replaced (mls): 500 Operative Report Dictated: Yes
[2019-01-02 18:09] VITALS: TEMP 97.6
[2019-01-02 18:10] VITALS: BP 133/82; PULSE 81
--- NOTE | 2019-01-03 12:10 | SPEC ---
DATE OF OPERATION: 01/02/2019 PREOPERATIVE DIAGNOSIS: Left carpal tunnel syndrome. POSTOPERATIVE DIAGNOSIS: Left carpal tunnel syndrome. PROCEDURE: Left carpal tunnel release and tenosynovectomy. SURGEON: Ghanshyam Mcguire MD ASSISTANTS: None. ANESTHESIOLOGIST: Celia Valdez MD ANESTHESIA: MAC anesthesia, local injection of 15 mL 0.5% Marcaine and 1% lidocaine mix. DRAINS: None. COMPLICATIONS: None. SPECIMEN: Tenosynovium, left wrist. BLOOD LOSS: None. BLOOD GIVEN: None. FLUID REPLACEMENT: Plasma-Lyte 500 mL. INDICATION FOR PROCEDURE: Patient is a 58-year-old female with a preoperative diagnosis of left carpal tunnel syndrome. After understanding the potential risks, complications, alternatives, and benefits of surgery versus nonsurgical treatment, the patient elected to undergo this procedure. She understands she may not have complete relief of her symptoms including the continuation of the numbness. DESCRIPTION OF PROCEDURE: The patient was brought to the operating room, peripheral IV placed and intravenous sedation was given. One gram of intravenous Ancef was given. MAC anesthesia was induced. A tourniquet was applied to the left upper arm and the left upper extremity was prepped and draped in sterile fashion. The entire case was done under 3.8 loupe magnification. A marking pen was utilized to chandu out a longitudinal incision in an already existing skin crease. Twenty mL of 0.5% Marcaine mixed with 1% Lidocaine was injected in and around the surgical incision. The left upper extremity was elevated, exsanguinated with an Esmarch bandage and the tourniquet inflated to 250 mmHg. A No. 15 scalpel blade was utilized to cut down through the skin. Subcutaneous hemostasis was achieved with the bipolar cautery. Dissection was done through the superficial palmar fascia. Self-retaining retractors were placed into the wound. Under direct visualization, the transverse carpal ligament was transected with a No. 15 scalpel blade, exposing the median nerve and the contents of the carpal tunnel. The distal and proximal extents of the release were completed with a Littler scissor and checked with irrigation and my small finger. They were seen to be complete. Limited dissection was done on the radial side of the median nerve and more extensive dissection was done on the ulnar side of the median nerve. The patients nerve was seen to be quite compressed by epineurium and therefore a limited epineurotomy was performed. A Ragnell retractor was used to gently retract the median nerve in a radial direction. The patient had a lot of tenosynovitis and therefore a tenosynovectomy was performed off all 9 flexor tendons. This was passed off the field as tenosynovium, left wrist. The floor of the carpal tunnel was checked. There were no abnormal masses or ganglion cysts. The area was copiously irrigated and washed out and closure begun. Undyed 4-0 Vicryl was used to close the deep dermal layer. Final skin reapproximation was done with horizontal mattress 4-0 nylon sutures. The area was then washed and dried, covered with Xeroform, 4x4s, fluffs between the fingers, Webril and a 4-inch plaster roll was utilized to make a volar splint, which was then wrapped with Alfredo and Coban. The tourniquet was taken down after a total tourniquet time of 24 minutes. There were no complications during the case. The patient tolerated the procedure well and was brought to the ambulatory recovery room in stable condition. Misty [id number]
--- NOTE | 2019-01-04 18:29 | PATH ---
Surgical Pathology Report Patient Name: PELON BANUELOS [facility]. Rec. #: [id number] /Age/Gender: 1960 (Age: 58) / F Account: [id number] Location: [facility] SURGICAL Taken: 01/02/2019 Received: 01/03/2019 Reported: 01/04/2019 Physicians: Ghanshyam Mcguire M.D. Specimen(s) Received TENOSYNOVIUM Clinical History Left carpal tunnel syndrome Final Diagnosis TENOSYNOVIUM, EXCISION: TENOSYNOVIAL TISSUE WITH FOCAL FIBROSIS. Electronically Signed Akash Newby M.D. Gross Description Received in formalin labeled "tenosynovium," is a 2.0 x 1.6 x 0.3 cm aggregate of nicole-yellow portions of soft tissue, consistent with tenosynovium. This specimen is entirely submitted in one cassette. 01/03/201901/03/2019
== END 2019-01-02 17:50 | disposition home or self-care (01) ==
LOC: JASU-SURG 11:02
PROVIDERS: ATTEND Orthopaedic Surgery
PROC: 01N50ZZ Release Median Nerve, Open Approach (ICD-10-PCS; principal; 2019-01-02 13:30)
DX: G56.02 Carpal tunnel syndrome, left upper limb (principal)
CPT/HCPCS: 88304-TC

== ENCOUNTER 2019-02-21 21:21 | Emergency (ER) | payer BC ==
[2019-02-21 21:43] VITALS: BP 112/63; PULSE 105; TEMP 98; BMI 26.6
--- NOTE | 2019-02-22 01:07 | PDOC ---
History of Present Illness - General Chief Complaint: Pain Stated Complaint: ABD PAIN Time Seen by Provider: 02/22/19 01:07 - History of Present Illness Initial Comments: 02/22/19 02:44 The patient is a 58 year old female with a PMH of HTN, HLD who presents for evaluation of abdominal pain. The patient reports a 3 week history of constant sharp epigastric and RUQ abdominal pain with radiation to her back associated with nausea prompting her presentation to the ED for further evaluation. She denies any exacerbating or relieving factors and denies similar symptoms in the past. She otherwise denies fevers, chills, SOB, chest pain, vomiting, or changes with urination or bowel movements. Past History - Past Medical History Allergies/Adverse Reactions: Allergies Allergy/AdvReac Type Severity Reaction Status Date / Time codeine Allergy Verified 02/21/19 21:41 Home Medications: Ambulatory Orders Lisinopril 10 mg PO DAILY 08/22/18 Naproxen [Naprosyn -] 500 mg PO BID #30 tablet 08/22/18 Hydrocodone/Acetaminophen [Hydrocodone-Acetamin 5-325 mg] 1 each PO Q6H #12 tablet MDD 4 01/02/19 Anemia: No Asthma: Yes (last attack 4-5x mth) Cancer: No Cardiac Disorders: Yes (LBBB) CVA: No COPD: No CHF: No Dementia: No Diabetes: No GI Disorders: No Disorders: No HTN: Yes Hypercholesterolemia: Yes Liver Disease: No Seizures: No Thyroid Disease: No - Surgical History Abdominal Surgery: No Appendectomy: No Cardiac Surgery: No Cholecystectomy: No Lung Surgery: No Neurologic Surgery: No Orthopedic Surgery: No - Immunization History Immunization Up to Date: Yes - Psycho Social/Smoking Cessation Hx Smoking History: Never smoked Have you smoked in the past 12 months: No Number of Cigarettes Smoked Daily: 2 If you are a former smoker, when did you quit?: 2010 Information on smoking cessation initiated: No Hx Alcohol Use: No Drug/Substance Use Hx: No Substance Use Type: None Hx Substance Use Treatment: No Review of Systems - Review of Systems Comments:: 02/22/19 02:48 Constitutional: No fevers, chills, fatigue, malaise HEENT: No Rhinorrhea, nasal congestion, visual changes Cardiovascular: No chest pain, syncope, palpitations, lightheadedness Respiratory: No Cough, SOB, Hemoptysis, Gastrointestinal: Abdominal pain, nausea. No Vomiting, Constipation, Diarrhea, Melena Genitourinary: No Dysuria, Frequency, Urgency, Hesitancy, Hematuria, Flank pain Musculoskeletal: No Myalgia, arthralgia Skin: No rashes, itching, bruising, pallor Neurologic: No Headache, Dizziness, Numbness, Weakness, or Tingling Psychiatric: No Hallucinations. No SI or HI *Physical Exam - Vital Signs Last Vital Signs Temp Pulse Resp BP Pulse Ox 98.0 F 105 H 18 112/63 100 02/21/19 21:41 02/21/19 21:41 02/21/19 21:41 02/21/19 21:41 02/21/19 21:41 - Physical Exam 02/22/19 02:48 General Appearance: Nourished. No Apparent Distress HEENT: No Pharyngeal Erythema, Tonsillar Exudate, Tonsillar Erythema Neck: No Cervical Lymphadenopathy Respiratory/Chest: Lungs Clear, Normal Breath Sounds. No Crackles, Rales, Rhonchi, Wheezing Cardiovascular: Regular Rhythm, Regular Rate. No Murmur, Gallops, Rubs Gastrointestinal/Abdominal: Normal Bowel Sounds, Soft. Epigastric and RUQ tenderness to palpation on exam. No Guarding, Rebound, Musculoskeletal: No CVA Tenderness Extremity: Normal Capillary Refill Integumentary: Normal Color, Dry, Warm Neurologic: Fully Oriented, Alert, Normal Mood/Affect, Normal Response, ED Treatment Course - LABORATORY CBC & Chemistry Diagram: 02/22/19 01:12 02/22/19 01:12 Medical Decision Making - Medical Decision Making 02/22/19 02:49 The patient is a 58 year old female with a PMH of HTN, HLD who presents for evaluation of abdominal pain. Given the patient's history and physical exam, we will obtain a cbc, cmp, lipase, troponin, ekg, RUQ US to evaluate further. We will treat with iv fluids, pepcid, maalox, zofran and continue to monitor and reassess while here in the ED. 02/22/19 02:51 CBC, cmp, lipase, troponin were unremarkable. RUQ US did not demonstrate any evidence of acute cholecystitis or gallbladder disease as preliminarily read by our communications coordinator radiologist. We are comfortable discharging the patient home in stable condition. Patient and family made aware of impression and plan, return precautions discussed including but not limited to worsening pain or symptoms, fevers, or signs of infection, chest pain, respiratory distress, inability to tolerate oral intake, dehydration, syncope, or neurologic changes. The patient is to follow up with PMD and specialist as recommended within 1 week, follow up information provided and the patient will call for an appointment. The patient is to take medications as instructed for duration of time and continue with supportive care, avoid triggers and precipitants. Patient is safe for outpatient follow-up. Discharge - Discharge Information Problems reviewed: Yes Clinical Impression/Diagnosis: Abdominal pain Qualifiers: Abdominal location: unspecified location Qualified Code(s): R10.9 - Unspecified abdominal pain Condition: Stable Disposition: HOME - Admission No - Follow up/Referral Referrals: Richy Scott MD [Primary Care Provider] - Ponce Enrique MD [Staff Physician] - - Patient Discharge Instructions Patient Printed Discharge Instructions: DI for Abdominal Pain-Adult Additional Instructions: 1) Please follow-up with your primary care doctor in the next 2-3 days. Please call tomorrow to schedule a follow up appointment. If you cannot follow up with your doctor within 1 week please return to the Emergency Department for any urgent issues. 2) Your laboratory / imaging results were normal here in the ER. Please follow up with our GI specialist Dr. Enrique. Please call tomorrow to schedule a follow up appointment. 3) If you have any worsening of symptoms or any other concerns, please return to the ER immediately. Return if worsening symptoms including fevers, headache, vomiting, visual or hearing disturbances, abdominal pain, chest pain, shortness of breath, syncope, dehydration, inability to take things by mouth/vomiting, altered mental status, or worsening concerning symptoms. 4) Please continue taking your home medications as directed. Side effects may include upset stomach, abdominal pain, vomiting, or diarrhea. Do not drink alcohol with your medications. - Post Discharge Activity
[2019-02-22] MEDS ORDERED: SODIUM CHLORIDE 1,000 ML IV STA (01:16)
[2019-02-22] MEDS ORDERED: FAMOTIDINE 20 MG/50 ML IVPB 20 MG/50 ML MG IVPB ONE ×2 (01:16→03:01)
[2019-02-22] MEDS ORDERED: ONDANSETRON 4 MG/2 ML VIAL IVPUSH ONE (01:16)
[2019-02-22] MEDS ORDERED: MAG HYDROX/AL HYDROX/SIMETH 30 ML UNIT-DOSE CUP PO ONE (01:16)
[2019-02-22 01:20] LABS: BASO % 1.2 % (0-2.0); EOS % 2.1 % (0-4.5); HEMOGLOBIN 13.6 GM/dL (10.7-15.3); LYMPH % 48.7 % (8-40); MCH 30.4 pg (25.7-33.7); MCHC 33.3 g/dl (32.0-36.0); MEAN CELL VOLUME 91.4 fl (80-96); MEAN PLT VOLUME 7.7 fl (7.5-11.1); PLATELET COUNT 368 K/MM3 (134-434); RBC 4.48 M/mm3 (3.60-5.2); RDW 13.4 % (11.6-15.6); WHITE BLOOD COUNT 7.7 K/mm3 (4.0-10.0)
[2019-02-22 01:54] LABS: ALBUMIN 4.2 g/dl (3.4-5.0); ALK PHOS 146 U/L (45-117); ANION GAP 5 MMOL/L (8-16); BILIRUBIN,TOTAL 0.3 mg/dL (0.2-1); BLOOD UREA NITROGEN 18.5 mg/dL (7-18); CALCIUM 9.8 mg/dL (8.5-10.1); CHLORIDE 109 mmol/L (98-107); CO2 28 mmol/L (21-32); CREATININE 0.7 mg/dL (0.55-1.3); GLUCOSE,RANDOM 94 mg/dL (74-106); POTASSIUM 4.4 mmol/L (3.5-5.1); SGOT/AST 40 U/L (15-37); SGPT/ALT 62 U/L (13-61); SODIUM 141 mmol/L (136-145); TOT PROT 7.6 g/dl (6.4-8.2)
[2019-02-22] MEDS ORDERED: MAG HYDROX/AL HYDROX/SIMETH 30 ML UNIT-DOSE CUP ONE (03:00)
[2019-02-22] MEDS ORDERED: ONDANSETRON 4 MG/2 ML VIAL ONE (03:01)
--- NOTE | 2019-02-22 03:53 | PDOC ---
Attending Attestation - Resident Resident Name: Dakota Stevenson - ED Attending Attestation I have performed the following: I have examined & evaluated the patient, The case was reviewed & discussed with the resident, I agree w/resident's findings & plan, Exceptions are as noted - HPI HPI: 02/22/19 03:52 See resident HPI - Physicial Exam PE: 02/22/19 03:52 Agree with exam as documented by resident - Medical Decision Making 02/22/19 03:52 RUQ abd pain vs, R sided chest wall pain consider vinnie, pancreatitis, AGE f/u labs rx for gi symptoms f/u US No radiographic signs of vinnie very slight elevation of LFTs Symptomatically improved Patient has GI f/u DC home
--- NOTE | 2019-02-22 14:01 | EKG ---
Test Reason : Blood Pressure : / mmHG Vent. Rate : 088 BPM Atrial Rate : 088 BPM P-R Int : 166 ms QRS Dur : 106 ms QT Int : 380 ms P-R-T Axes : 040 035 040 degrees QTc Int : 459 ms NORMAL SINUS RHYTHM POSSIBLE LEFT ATRIAL ENLARGEMENT LEFT VENTRICULAR HYPERTROPHY ABNORMAL ECG WHEN COMPARED WITH ECG OF 26-JUL-2016 00:23, NO SIGNIFICANT CHANGE WAS FOUND Confirmed by AUSTIN PURDY MD ([id number]) on 02/22/2019 2:00:50 PM Referred By: Confirmed By:AUSTIN PURDY MD
== END 2019-02-22 03:30 | disposition home or self-care (01) ==
LOC: JER 21:21
PROC: 3E0337Z Introduction of Electrolytic and Water Balance Substance into Peripheral Vein, Percutaneous Approach (ICD-10-PCS; principal; 2019-02-21)
PROC: 3E033GC Introduction of Other Therapeutic Substance into Peripheral Vein, Percutaneous Approach (ICD-10-PCS; 2019-02-21)
PROC: 3E033GC Introduction of Other Therapeutic Substance into Peripheral Vein, Percutaneous Approach (ICD-10-PCS; 2019-02-21)
DX: R10.9 Unspecified abdominal pain (principal); Z88.5 Allergy status to narcotic agent; I10 Essential (primary) hypertension; E78.5 Hyperlipidemia, unspecified; Z87.09 Personal history of other diseases of the respiratory system
CPT/HCPCS: 36415; 76705-TC; 80053; 82550; 82553; 83690; 84484; 85025; 93005; 93010; 99282-25; J7030

== ENCOUNTER 2019-04-10 04:41 | Day surgery (SDC) | payer BC ==
[2019-04-09 08:35] VITALS: BMI 27.1
--- NOTE | 2019-04-10 10:02 | HP ---
[facility] - Chief Complaint Chief Complaint: right hand pain/tingling - Past Medical History Allergies/Adverse Reactions: Allergies Allergy/AdvReac Type Severity Reaction Status Date / Time codeine Allergy Verified 02/21/19 21:41 - Current Medications Current Medications: Home Medications Medication Instructions Recorded Lisinopril 10 mg PO DAILY 08/22/18 Naproxen [Naprosyn -] 500 mg PO BID #30 tablet 08/22/18 Hydrocodone/Acetaminophen 1 each PO Q6H #15 tablet MDD 4 04/10/19 [Hydrocodone-Acetamin 5-325 mg] Satellite Physical Exam - Physical Examination General Appearance: Well Nourished, Well Developed, Alert & Oriented x3 ENT: Clear Lung: Normal air movement Extremities: Other (right hand- + tinels, + phalens, emg + cts) Neurological: Intact, Alert, Oriented Satellite Impression/Plan - Impression/Plan Impression: right cts Operative Procedure: right ctr Date to be Performed: 04/10/19
[2019-04-10] MEDS ORDERED: LIDOCAINE HCL 1%, 10 MG/ML (20ML VIAL) ONE ×2 (11:55→12:27)
[2019-04-10] MEDS ORDERED: PROPOFOL 20 ML ONE ×2 (12:40)
[2019-04-10] MEDS ORDERED: MIDAZOLAM HCL 2 MG/2 ML SINGLE DOSE VIAL ONE (12:41)
[2019-04-10] MEDS ORDERED: ceFAZolin SODIUM 1 GM VIAL ONE (12:45)
[2019-04-10] MEDS ORDERED: ceFAZolin SODIUM 1 GM VIAL IVPB ONE (13:05)
[2019-04-10] MEDS ORDERED: BUPIVACAINE HCL/PF 0.5% (5 MG/ML) 30 ML VIAL IJ ONE (13:06)
[2019-04-10] MEDS ORDERED: LIDOCAINE HCL 1%, 10 MG/ML (20ML VIAL) NR ONE (13:06)
--- NOTE | 2019-04-10 13:39 | OP ---
Operative Note - Note: Operative Date: 04/10/19 Pre-Operative Diagnosis: right CTS Operation: right CTR, tenosynovectomy Post-Operative Diagnosis: Same as Pre-op Surgeon: Ghanshyam Mcguire Anesthesiologist/PUBLIC WEIGHER: Haile Jim Anesthesia: Local, MAC Specimens Removed: tenosynovium Estimated Blood Loss (mls): 0 Drains, Volume Out (mls): 0 Blood Volume Replaced (mls): 0 Fluid Volume Replaced (mls): 500 Operative Report Dictated: Yes
[2019-04-10 18:11] VITALS: BP 110/70; PULSE 74; TEMP 98
--- NOTE | 2019-04-11 12:01 | SPEC ---
DATE OF OPERATION: 04/10/2019 PREOPERATIVE DIAGNOSIS: Right carpal tunnel syndrome. POSTOPERATIVE DIAGNOSIS: Right carpal tunnel syndrome. PROCEDURE: Right carpal tunnel release and tenosynovectomy. SURGEON: Ghanshyam Mcguire MD ASSISTANTS: None. ANESTHESIOLOGIST: ANESTHESIA: MAC anesthesia, local injection with 15 mL of 0.5% Marcaine and 1% Lidocaine mix. DRAINS: None. COMPLICATIONS: None. SPECIMENS: Tenosynovium, right wrist. BLOOD LOSS: None. BLOOD GIVEN: None. FLUID REPLACEMENT: 500 mL of Plasmalyte. INDICATIONS: This patient is a 58-year-old female with a preoperative diagnosis of right carpal tunnel syndrome. After understanding the potential risks, complications, alternatives and benefits of surgery versus nonsurgical treatment, the patient elected to undergo this procedure. DESCRIPTION OF PROCEDURE: The patient was brought to the operating room, peripheral IV placed and intravenous sedation was given. One gram of intravenous Ancef was given. MAC anesthesia was induced. A tourniquet was applied to the right upper arm and the right upper extremity was prepped and draped in sterile fashion. The entire case was done under 3.8 loupe magnification. A marking pen was utilized to chandu out a longitudinal incision in an already existing skin crease. Twenty mL of 0.5% Marcaine mixed with 1% Lidocaine was injected in and around the surgical incision. The right upper extremity was elevated, exsanguinated with an Esmarch bandage and the tourniquet inflated to 250 mmHg. A No. 15 scalpel blade was utilized to cut down through the skin. Subcutaneous hemostasis was achieved with the bipolar cautery. Dissection was done through the superficial palmar fascia. Self-retaining retractors were placed into the wound. Under direct visualization, the transverse carpal ligament was transected with a No. 15 scalpel blade, exposing the median nerve and the contents of the carpal tunnel. The distal and proximal extents of the release were completed with a Littler scissor and checked with irrigation and my small finger. They were seen to be complete. Limited dissection was done on the radial side of the median nerve and more extensive dissection was done on the ulnar side of the median nerve. The patients nerve was seen to be quite compressed by epineurium and therefore a limited epineurotomy was performed. A Ragnell retractor was used to gently retract the median nerve in a radial direction. The patient had a lot of tenosynovitis and therefore a tenosynovectomy was performed off all 9 flexor tendons. This was passed off the field as tenosynovium, right wrist. The floor of the carpal tunnel was checked. There were no abnormal masses or ganglion cysts. The area was copiously irrigated and washed out and closure begun. Undyed 4-0 Vicryl was used to close the deep dermal layer. Final skin reapproximation was done with horizontal mattress 4-0 nylon sutures. The area was then washed and dried, covered with Xeroform, 4x4s, fluffs between the fingers, Webril and a 4-inch plaster roll was utilized to make a volar splint, which was then wrapped with Alfredo and Coban. The tourniquet was taken down after a total tourniquet time of 19 minutes. There were no complications during the case. The patient tolerated the procedure well and was brought to the ambulatory recovery room in stable condition. Misty [id number]
--- NOTE | 2019-04-12 19:12 | PATH ---
Surgical Pathology Report Patient Name: PELON BANUELOS [facility]. Rec. #: [id number] /Age/Gender: 1960 (Age: 58) / F Account: [id number] Location: [facility] SURGICAL Taken: 04/10/2019 Received: 04/11/2019 Reported: 04/12/2019 Physicians: Ghanshyam Mcguire M.D. Specimen(s) Received TENOSYNOVIUM Clinical History Right carpal tunnel syndrome Final Diagnosis RIGHT HAND TENOSYNOVIUM, EXCISION: TENOSYNOVIAL TISSUE WITH FOCAL FIBROSIS. Electronically Signed Akash Newby M.D. Gross Description Received in formalin labeled "tenosynovium right hand," is a 2.0 x 1.3 x 0.3 cm aggregate of nicole-yellow portions of soft tissue, consistent with tenosynovium. The specimen is submitted in toto in one cassette. /04/11/2019 saudi04/11/2019
== END 2019-04-10 16:00 | disposition home or self-care (01) ==
LOC: JASU-SURG 04:41
PROVIDERS: ATTEND Orthopaedic Surgery
PROC: 01N50ZZ Release Median Nerve, Open Approach (ICD-10-PCS; principal; 2019-04-10 12:30)
DX: G56.01 Carpal tunnel syndrome, right upper limb (principal)
CPT/HCPCS: 88304-TC

== ENCOUNTER 2019-10-04 06:08 | Emergency (ER) | payer BC ==
[2019-10-04 07:08] VITALS: TEMP 98.3; BMI 26.9
--- NOTE | 2019-10-04 07:09 | PDOC ---
History of Present Illness - General Stated Complaint: PAIN,VAGINAL BLEEDING Time Seen by Provider: 10/04/19 07:09 History Source: Patient Exam Limitations: No Limitations - History of Present Illness Initial Comments: 10/04/19 07:30 58yF w PMHx kidney stones, kidney cysts, HTN, HLD presenting w hematuria, dysuria, nausea, and persistent R flank pain radiating to R suprapubic area starting last night. Had similar symptoms w prior kidney stones. Didn't take meds for symptoms. Denies fever, vomiting, abd pain at rest, bowel mvmt changes, vaginal bleeding/discharge Past History - Medical History Allergies/Adverse Reactions: Allergies Allergy/AdvReac Type Severity Reaction Status Date / Time codeine Allergy Severe Verified 10/04/19 06:58 oxycodone Allergy Severe Verified 10/04/19 06:58 Home Medications: Ambulatory Orders Lisinopril 10 mg PO DAILY 08/22/18 Naproxen [Naprosyn -] 500 mg PO BID #30 tablet 08/22/18 Hydrocodone/Acetaminophen [Hydrocodone-Acetamin 5-325 mg] 1 each PO Q6H #15 tablet MDD 4 04/10/19 levoFLOXacin [Levaquin] 750 mg PO DAILY 5 Days #5 tab 10/04/19 Anemia: No Asthma: Yes (last attack 4-5x mth) Cancer: No Cardiac Disorders: Yes (LBBB, PALPITATIONS) CVA: No COPD: No CHF: No Dementia: No Diabetes: No GI Disorders: No Disorders: No HTN: Yes Hypercholesterolemia: Yes Liver Disease: No Seizures: No Thyroid Disease: No - Surgical History Abdominal Surgery: No Appendectomy: No Cardiac Surgery: No Cholecystectomy: No Lung Surgery: No Neurologic Surgery: No Orthopedic Surgery: Yes (LEFT HAND SX) - Reproductive History Is Patient Now?: No - Immunization History Immunization Up to Date: Yes - Psycho-Social/Smoking History Smoking History: Never smoked Have you smoked in the past 12 months: No Number of Cigarettes Smoked Daily: 2 If you are a former smoker, when did you quit?: 8 YEARS AGO - Substance Abuse Hx (Audit-C & DAST Scrn) How often the patient has a drink containing alcohol: Monthly or less Score: In Men: 4 or > Positive; In Women: 3 or > Positive: 1 Screen Result (Pos requires Nsg. Audit-10AR): Negative In the last yr the pt used illegal drug/Rx for NonMed reason: No Score: Yes response is considered Positive: 0 Screen Result (Positive result requires Nsg. DAST-10): Negative Review of Systems - Review of Systems Constitutional: No: Chills, Fever HEENTM: No: Eye Pain, Nose Pain Respiratory: No: Cough, Shortness of Breath Cardiac (ROS): No: Chest Pain, Palpitations ABD/GI: Yes: Nausea. No: Constipated, Diarrhea, Vomiting : Yes: Dysuria, Hematuria. No: Discharge Musculoskeletal: No: Back Pain, Joint Pain Integumentary: No: Bruising, Flushing Neurological: No: Headache, Seizure Psychiatric: No: Anxiety, Depression Endocrine: No: Intolerance to Cold, Intolerance to Heat Hematologic/Lymphatic: No: Anemia, Blood Clots *Physical Exam - Vital Signs Last Vital Signs Temp Pulse Resp BP Pulse Ox 98.3 F 84 18 141/94 100 10/04/19 06:59 10/04/19 06:59 10/04/19 06:59 10/04/19 06:59 10/04/19 06:59 - Physical Exam General Appearance: Yes: Nourished, Appropriately Dressed, Mild Distress HEENT: positive: EOMI, SRUTHI, Normal Voice, Hearing Grossly Normal. negative: Scleral Icterus (R), Scleral Icterus (L) Respiratory/Chest: positive: Lungs Clear, Normal Breath Sounds. negative: Chest Tender, Respiratory Distress Cardiovascular: positive: Regular Rhythm, Regular Rate, S1, S2. negative: Edema, Murmur Gastrointestinal/Abdominal: positive: Normal Bowel Sounds, Flat, Soft. negative: Tender, Organomegaly Musculoskeletal: negative: CVA Tenderness (R), CVA Tenderness (L) Integumentary: positive: Normal Color, Warm. negative: Dry Neurologic: positive: Fully Oriented, Alert, Normal Mood/Affect, Normal Response ED Treatment Course - LABORATORY CBC & Chemistry Diagram: 10/04/19 07:35 10/04/19 07:29 Medical Decision Making - Medical Decision Making 10/04/19 07:33 CT A/P - no obstructive stone, acute pathology, diffuse fatty liver WBC 13, UTI w blood --- 58yF w PMHx kidney stones, kidney cysts, HTN, HLD presenting w hematuria, dysuria, nausea, and persistent R flank pain radiating to R suprapubic area starting last night d/t UTI. No stone on CT. Given zofran, tylenol DC home w michael, PCP f/u Discharge - Discharge Information Problems reviewed: Yes Clinical Impression/Diagnosis: Pyelonephritis UTI (urinary tract infection) Qualifiers: Urinary tract infection type: acute pyelonephritis Qualified Code(s): N10 - Acute pyelonephritis Condition: Improved Disposition: HOME - Admission No - Additional Discharge Information Prescriptions: levoFLOXacin [Levaquin] 750 mg PO DAILY 5 Days #5 tab - Follow up/Referral Referrals: Richy Scott MD [Primary Care Provider] - Katelyn Vivas MD [Staff Physician] - - Patient Discharge Instructions Patient Printed Discharge Instructions: DI for Kidney Infection, DI for Urinary Tract Infection (UTI) Additional Instructions: You were seen in the emergency department for the evaluation of your right flank pain. It was found that you have a urinary tract infection and a suspected infection of the kidney. Please take the antibiotics for 5 days as prescribed. Please return to the emergency department if you have worsening symptoms or new concerning symptoms. Please do not do any intensive exercises including weight lifting and long distance running for the next 2-3 weeks once you start antibiotics. Please follow up with your primary medical doctor within 1 week after discharge for follow up care. - Post Discharge Activity
--- NOTE | 2019-10-04 07:22 | PDOC ---
Attending Attestation - Resident Resident Name: Miki Polanco - HPI HPI: 10/04/19 12:22 Pt presents to the ED complaining of R flank pain, and dyusria that started last night. Denies fever, nausea or vomiting. Denies prior history of stones. 10/04/19 12:24 - Physicial Exam PE: 10/04/19 12:24 Agree with resident exam. patient is well appearing and in no acute distress. Abdomen is soft, non tender, non distended without guarding or rebound. - Medical Decision Making 10/04/19 12:30 Pt presents to the ED complaining of flank pain and dysuria without fever. Labs are consistent with pyelonephritis. Ct scan shows no renal stones or other intraabdominal pathology. WEll appearing and tolerating PO. Will treat with antibiotics and discharge home with instructions to return to the ED for worsening symptoms. 10/06/19 13:13 Discharge - Discharge Information Problems reviewed: Yes Clinical Impression/Diagnosis: Pyelonephritis UTI (urinary tract infection) Qualifiers: Urinary tract infection type: acute pyelonephritis Qualified Code(s): N10 - Acute pyelonephritis Condition: Improved Disposition: HOME - Additional Discharge Information Prescriptions: levoFLOXacin [Levaquin] 750 mg PO DAILY 5 Days #5 tab - Follow up/Referral Referrals: Richy Scott MD [Primary Care Provider] - Katelyn Vivas MD [Staff Physician] - - Patient Discharge Instructions Patient Printed Discharge Instructions: DI for Kidney Infection, DI for Urinary Tract Infection (UTI) Additional Instructions: You were seen in the emergency department for the evaluation of your right flank pain. It was found that you have a urinary tract infection and a suspected infection of the kidney. Please take the antibiotics for 5 days as prescribed. Please return to the emergency department if you have worsening symptoms or new concerning symptoms. Please do not do any intensive exercises including weight lifting and long distance running for the next 2-3 weeks once you start antibiotics. Please follow up with your primary medical doctor within 1 week after discharge for follow up care. - Post Discharge Activity
[2019-10-04] MEDS ORDERED: ONDANSETRON 4 MG/2 ML VIAL IVPUSH ONE (07:32)
[2019-10-04] MEDS ORDERED: ACETAMINOPHEN 500 MG TABLET (FP) PO ONE (07:59)
[2019-10-04 08:01] LABS: BASO % 0.5 % (0-2.0); EOS % 1.1 % (0-4.5); HEMATOCRIT 41.3 % (32.4-45.2); HEMOGLOBIN 13.8 GM/dL (10.7-15.3); LYMPH % 21.4 % (8-40); MCH 30.8 pg (25.7-33.7); MCHC 33.3 g/dl (32.0-36.0); MEAN CELL VOLUME 92.4 fl (80-96); MEAN PLT VOLUME 8.6 fl (7.5-11.1); MONO % 7.9 % (3.8-10.2); NEUT % 69.1 % (42.8-82.8); PLATELET COUNT 312 K/MM3 (134-434); RBC 4.47 M/mm3 (3.60-5.2); RDW 13.2 % (11.6-15.6); WHITE BLOOD COUNT 13.4 K/mm3 (4.0-10.0)
[2019-10-04] MEDS ORDERED: ACETAMINOPHEN 325 MG TABLET (FP) ONE (08:11)
[2019-10-04 08:24] LABS: EPI CELLS 5 /uL (0-25.1); HYALINE CASTS 1 /uL (0-3.1); URINE APPEARANCE CLOUDY; URINE BACTERIA 5218 /uL (0-1359); URINE BILIRUBIN NEGATIVE (NEGATIVE); URINE COLOR YELLOW; URINE GLUCOSE (UA) NEGATIVE (NEGATIVE); URINE KETONE NEGATIVE (NEGATIVE); URINE LEUK ESTERASE 2+ (NEGATIVE); URINE NITRITE POSITIVE (NEGATIVE); URINE PROTEIN 2+ (NEGATIVE); URINE RBC 3121 /uL (0-23.9); URINE UROBILINOGEN 0.2 mg/dL (0.2-1.0); URINE WBC 1459 /uL (0-25.8)
[2019-10-04 08:26] LABS: ALBUMIN 4.3 g/dl (3.4-5.0); BILIRUBIN,TOTAL 0.4 mg/dL (0.2-1); BLOOD UREA NITROGEN 17.4 mg/dL (7-18); CALCIUM 9.8 mg/dL (8.5-10.1); CREATININE 0.8 mg/dL (0.55-1.3); POTASSIUM 4.1 mmol/L (3.5-5.1); TOT PROT 7.8 g/dl (6.4-8.2)
[2019-10-04] MEDS ORDERED: CEFTRIAXONE 1 GM in DEXTROSE 5%-WATER - 100 ML IVPB ONE (08:35)
[2019-10-04] MEDS ORDERED: CEFTRIAXONE 1 GM/50 ML BAG ONE (09:20)
[2019-10-04 11:05] VITALS: BP 124/84; PULSE 72
== END 2019-10-04 11:05 | disposition home or self-care (01) ==
LOC: JER 06:08
PROC: 3E033NZ Introduction of Analgesics, Hypnotics, Sedatives into Peripheral Vein, Percutaneous Approach (ICD-10-PCS; principal; 2019-10-04)
PROC: 3E0337Z Introduction of Electrolytic and Water Balance Substance into Peripheral Vein, Percutaneous Approach (ICD-10-PCS; 2019-10-04)
DX: N10 Acute pyelonephritis (principal)
CPT/HCPCS: 36415; 74176-TC; 80053; 81003; 85025; 87086; 87186; 99285-25

== ENCOUNTER 2021-02-20 12:59 | Emergency (ER) | payer BC ==
[2021-02-20 13:19] VITALS: BP 108/71; PULSE 111; TEMP 98.4; BMI 26.1
[2021-02-20] MEDS ORDERED: IBUPROFEN 600 MG TABLET (FP) PO ONE ×2 (13:45→13:57)
== END 2021-02-20 14:42 | disposition home or self-care (01) ==
LOC: JER 12:59
DX: R09.89 Other specified symptoms and signs involving the circulatory and respiratory systems (principal)
CPT/HCPCS: 71046-TC-FY; 99284-25

== ENCOUNTER 2021-03-18 17:08 | Emergency (ER) | payer BC ==
[2021-03-18 17:58] VITALS: BP 132/74; PULSE 81; TEMP 98.1; BMI 25.3
[2021-03-18] MEDS ORDERED: IBUPROFEN 600 MG TABLET (FP) PO ONE (18:37)
[2021-03-18] MEDS ORDERED: IBUPROFEN 400 MG TABLET (FP) PO ONE ×2 (19:00)
== END 2021-03-18 20:11 | disposition home or self-care (01) ==
LOC: JERFT 17:08
DX: M25.561 Pain in right knee (principal); M25.562 Pain in left knee; M54.50 Low back pain, unspecified; M25.551 Pain in right hip; W01.0XXA Fall on same level from slipping, tripping and stumbling without subsequent striking against object, initial encounter
CPT/HCPCS: 73523-TC-FY; 73562-TC-LT-FY; 73562-TC-RT-FY; 99285-25

== ENCOUNTER 2021-04-28 14:27 | Emergency (ER) | payer BC ==
[2021-04-28 14:42] VITALS: BP 97/63; PULSE 86; TEMP 98; BMI 25.8
[2021-04-28] MEDS ORDERED: LIDOCAINE 5% TOPICAL PATCH TP ONE (15:35)
[2021-04-28] MEDS ORDERED: KETOROLAC TROMETHAMINE 15 MG/ML VIAL IM ONE (15:35)
[2021-04-28] MEDS ORDERED: KETOROLAC TROMETHAMINE 15 MG/ML VIAL ONE (15:38)
[2021-04-28] MEDS ORDERED: LIDOCAINE 5% TOPICAL PATCH ONE (15:38)
[2021-04-28 16:47] LABS: URINE APPEARANCE CLEAR; URINE BILIRUBIN NEGATIVE (NEGATIVE); URINE COLOR YELLOW; URINE GLUCOSE (UA) NEGATIVE (NEGATIVE); URINE KETONE NEGATIVE (NEGATIVE); URINE LEUK ESTERASE NEGATIVE (NEGATIVE); URINE NITRITE NEGATIVE (NEGATIVE); URINE PROTEIN NEGATIVE (NEGATIVE); URINE UROBILINOGEN 0.2 mg/dL (0.2-1.0)
[2021-04-28] MEDS ORDERED: LIDOCAINE PATCH REMOVAL MC SCH (22:00)
== END 2021-04-28 16:56 | disposition home or self-care (01) ==
LOC: JERFT 14:27
PROC: 3E023GC Introduction of Other Therapeutic Substance into Muscle, Percutaneous Approach (ICD-10-PCS; principal; 2021-04-28)
DX: M54.41 Lumbago with sciatica, right side (principal)
CPT/HCPCS: 81003; 87086; 99284-25

== ENCOUNTER 2021-10-23 13:05 | Emergency (ER) | payer BC ==
[2021-10-23 13:47] VITALS: RESP 16; BMI 25.8
[2021-10-23] MEDS ORDERED: SODIUM CHLORIDE 0.9% 500 ML INFUS.BAG IV ONE (14:26)
[2021-10-23] MEDS ORDERED: ACETAMINOPHEN 1000 MG/100 ML BAG IVPB ONE (14:26)
[2021-10-23] MEDS ORDERED: MECLIZINE HCL 25 MG TABLET (FP) PO ONE (14:26)
[2021-10-23] MEDS ORDERED: METOCLOPRAMIDE HCL INJECTION 10 MG/2 ML VIAL IVPUSH ONE (14:26)
[2021-10-23] MEDS ORDERED: MECLIZINE HCL 25 MG TABLET (FP) ONE (14:33)
[2021-10-23] MEDS ORDERED: ACETAMINOPHEN INJECTION 100 ML IVPB ONE (14:34)
[2021-10-23] MEDS ORDERED: METOCLOPRAMIDE HCL INJECTION 10 MG/2 ML VIAL ONE (14:34)
[2021-10-23 15:16] LABS: BASO % 0.6 % (0-2.0); EOS % 1.9 % (0-4.5); HEMOGLOBIN 14.9 GM/dL (10.7-15.3); LYMPH % 35.8 % (8-40); MCH 31.7 pg (25.7-33.7); MCHC 34.6 g/dl (32.0-36.0); MEAN CELL VOLUME 91.7 fl (80-96); MEAN PLT VOLUME 8.2 fl (7.5-11.1); NEUT % 53.7 % (42.8-82.8); PLATELET COUNT 352 10^3/uL (134-434); RBC 4.69 M/mm3 (3.60-5.2); RDW 13.5 % (11.6-15.6); WHITE BLOOD COUNT 7.3 K/mm3 (4.0-10.0)
[2021-10-23 15:39] LABS: CALCIUM 10.1 mg/dL (8.5-10.1)
[2021-10-23 15:40] LABS: ALBUMIN 4.6 g/dl (3.4-5.0); BLOOD UREA NITROGEN 14.4 mg/dL (7-18)
[2021-10-23 15:43] LABS: CREATININE 0.6 mg/dL (0.55-1.3)
[2021-10-23 15:44] LABS: TOT PROT 8.6 g/dl (6.4-8.2)
[2021-10-23 15:45] LABS: BILIRUBIN,TOTAL 0.3 mg/dL (0.2-1)
[2021-10-23 16:23] VITALS: BP 142/84; PULSE 74; TEMP 98.2
== END 2021-10-23 16:30 | disposition home or self-care (01) ==
LOC: JER 13:05
DX: R51.9 Headache, unspecified (principal)
CPT/HCPCS: 36415; 70450-TC; 80053; 83735; 84484; 85025; 93005; 93010; 99285-25

== ENCOUNTER 2021-11-24 04:40 | Day surgery (SDC) | payer BC ==
[2021-11-22 13:54] VITALS: BMI 26.1
[2021-11-24] MEDS ORDERED: LIDOCAINE HCL 2% 100 MG/5 ML DISP.SYRIN ONE (07:26)
[2021-11-24] MEDS ORDERED: MIDAZOLAM HCL 2 MG/2 ML SINGLE DOSE VIAL ONE (07:27)
[2021-11-24] MEDS ORDERED: PROPOFOL 40 ML ONE (07:27)
[2021-11-24] MEDS ORDERED: ceFAZolin 2 GRAM PREMIX BAG IVPB ONE (08:30)
[2021-11-24] MEDS ORDERED: ONDANSETRON 4 MG/2 ML VIAL ONE (08:34)
[2021-11-24] MEDS ORDERED: KETOROLAC TROMETHAMINE 30 MG/1 ML VIAL ONE (08:34)
[2021-11-24] MEDS ORDERED: ceFAZolin SODIUM 1 GM VIAL ONE (08:34)
[2021-11-24] MEDS ORDERED: DEXAMETHASONE SOD PHOSPHATE 4 MG/1 ML VIAL ONE (08:34)
[2021-11-24] MEDS ORDERED: BUPIVACAINE HCL/PF 0.5% (5MG/ML) 10 ML VIAL IJ ONE (09:03)
[2021-11-24] MEDS ORDERED: PROMETHAZINE HCL 25 MG/1 ML VIAL IVPUSH PRN (09:22)
[2021-11-24] MEDS ORDERED: oxyCODONE HCL 5 MG TABLET PO PRN ×2 (09:22)
[2021-11-24] MEDS ORDERED: ONDANSETRON 4 MG/2 ML VIAL IVPUSH PRN (09:22)
[2021-11-24] MEDS ORDERED: ACETAMINOPHEN 1000 MG/100 ML BAG IVPB ONE (09:25)
[2021-11-24] MEDS ORDERED: LACTATED RINGERS SOLUTION 1,000 ML IV SCH (09:30)
[2021-11-24 11:34] VITALS: RESP 16; TEMP 97.8
[2021-11-24 13:19] VITALS: BP 128/70; PULSE 88
== END 2021-11-24 13:00 | disposition home or self-care (01) ==
LOC: JASU-SURG 04:40
PROVIDERS: ATTEND Orthopaedic Surgery
PROC: 0SBD4ZZ Excision of Left Knee Joint, Percutaneous Endoscopic Approach (ICD-10-PCS; principal; 2021-11-24 08:00)
DX: S83.242A Other tear of medial meniscus, current injury, left knee, initial encounter (principal); X58.XXXA Exposure to other specified factors, initial encounter; Y93.9 Activity, unspecified; Y92.9 Unspecified place or not applicable; Y99.9 Unspecified external cause status; M17.12 Unilateral primary osteoarthritis, left knee
CPT/HCPCS: 94760

== ENCOUNTER 2022-04-25 11:31 | Emergency (ER) | payer BC ==
[2022-04-25 12:38] VITALS: RESP 16; BMI 25.8
[2022-04-25] MEDS ORDERED: FAMOTIDINE 20 MG/50 ML IVPB 20 MG/50 ML MG IVPB ONE ×2 (13:29→13:49)
[2022-04-25] MEDS ORDERED: METOCLOPRAMIDE HCL INJECTION 10 MG/2 ML VIAL IVPUSH ONE (13:29)
[2022-04-25] MEDS ORDERED: MAG HYDROX/AL HYDROX/SIMETH 30 ML UNIT-DOSE CUP PO ONE (13:37)
[2022-04-25] MEDS ORDERED: MAG HYDROX/AL HYDROX/SIMETH 30 ML UNIT-DOSE CUP ONE (13:49)
[2022-04-25] MEDS ORDERED: METOCLOPRAMIDE HCL INJECTION 10 MG/2 ML VIAL ONE (13:49)
[2022-04-25 14:27] LABS: BASO % 0.8 % (0-2.0); EOS % 0.7 % (0-4.5); HEMATOCRIT 39.4 % (32.4-45.2); HEMOGLOBIN 13.5 GM/dL (10.7-15.3); LYMPH % 32.7 % (8-40); MCH 31.2 pg (25.7-33.7); MCHC 34.3 g/dl (32.0-36.0); MEAN CELL VOLUME 91.1 fl (80-96); MEAN PLT VOLUME 7.9 fl (7.5-11.1); MONO % 5.5 % (3.8-10.2); NEUT % 60.3 % (42.8-82.8); PLATELET COUNT 362 10^3/uL (134-434); RBC 4.33 M/mm3 (3.60-5.2); RDW 13.5 % (11.6-15.6); WHITE BLOOD COUNT 7.3 K/mm3 (4.0-10.0)
[2022-04-25 14:29] LABS: EPI CELLS 29 /uL (0-25.1); HYALINE CASTS 5 /uL (0-3.1); URINE APPEARANCE CLEAR; URINE BACTERIA 31 /uL (0-1359); URINE BILIRUBIN NEGATIVE (NEGATIVE); URINE COLOR YELLOW; URINE GLUCOSE (UA) NEGATIVE (NEGATIVE); URINE KETONE NEGATIVE (NEGATIVE); URINE LEUK ESTERASE NEGATIVE (NEGATIVE); URINE NITRITE NEGATIVE (NEGATIVE); URINE PROTEIN 1+ (NEGATIVE); URINE RBC 11 /uL (0-23.9); URINE UROBILINOGEN 0.2 mg/dL (0.2-1.0); URINE WBC 13 /uL (0-25.8)
[2022-04-25 14:50] LABS: ALBUMIN 4.4 g/dl (3.4-5.0); BLOOD UREA NITROGEN 17.8 mg/dL (7-18); CALCIUM 9.9 mg/dL (8.5-10.1)
[2022-04-25 14:53] LABS: CREATININE 0.7 mg/dL (0.55-1.3)
[2022-04-25 14:54] LABS: BILIRUBIN,TOTAL 0.4 mg/dL (0.2-1); TOT PROT 7.8 g/dl (6.4-8.2)
[2022-04-25 16:27] VITALS: TEMP 97.7
[2022-04-25] MEDS ORDERED: ACETAMINOPHEN 1000 MG/100 ML BAG IVPB ONE (16:36)
[2022-04-25] MEDS ORDERED: ONDANSETRON 4 MG/2 ML VIAL IVPUSH ONE (16:36)
[2022-04-25] MEDS ORDERED: ONDANSETRON 4 MG/2 ML VIAL ONE (17:20)
[2022-04-25] MEDS ORDERED: ACETAMINOPHEN INJECTION 100 ML IVPB ONE (17:20)
[2022-04-25 20:15] VITALS: BP 155/89; PULSE 73
== END 2022-04-25 20:16 | disposition home or self-care (01) ==
LOC: JER 11:31
PROC: 3E0333Z Introduction of Anti-inflammatory into Peripheral Vein, Percutaneous Approach (ICD-10-PCS; principal; 2022-04-25)
PROC: 3E033GC Introduction of Other Therapeutic Substance into Peripheral Vein, Percutaneous Approach (ICD-10-PCS; 2022-04-25)
PROC: 3E033GC Introduction of Other Therapeutic Substance into Peripheral Vein, Percutaneous Approach (ICD-10-PCS; 2022-04-25)
PROC: 3E033GC Introduction of Other Therapeutic Substance into Peripheral Vein, Percutaneous Approach (ICD-10-PCS; 2022-04-25)
DX: R10.13 Epigastric pain (principal); R11.2 Nausea with vomiting, unspecified; R51.9 Headache, unspecified
CPT/HCPCS: 0241U-QW; 36415; 71046-TC-FY; 74177-TC; 80053; 81003; 83690; 84484; 85025; 87077; 87086; 93005; 93010; 99285-25; Q9967

== ENCOUNTER 2023-04-24 07:25 | Emergency (ER) | payer BC ==
[2023-04-24 07:51] VITALS: PULSE 63; RESP 16; TEMP 97.7; BMI 25.0
[2023-04-24] MEDS ORDERED: METOCLOPRAMIDE HCL INJECTION 10 MG/2 ML VIAL ONE (09:01)
[2023-04-24] MEDS ORDERED: ACETAMINOPHEN INJECTION 100 ML IVPB ONE (09:02)
[2023-04-24] MEDS ORDERED: FAMOTIDINE 20 MG/50 ML IVPB 20 MG/50 ML MG IVPB ONE (09:02)
[2023-04-24] MEDS: FAMOTIDINE 20 MG/50 ML IVPB 20 MG/50 ML MG IVPB ONE (09:07)
[2023-04-24] MEDS: METOCLOPRAMIDE HCL INJECTION 10 MG/2 ML VIAL IVPUSH ONE (09:07)
[2023-04-24] MEDS: ACETAMINOPHEN 1000 MG/100 ML BAG IVPB ONE (09:07)
[2023-04-24 09:17] LABS: BASO % 0.7 % (0-2.0); HEMATOCRIT 38.9 % (32.4-45.2); HEMOGLOBIN 13.3 GM/dL (10.7-15.3); MCH 31.3 pg (25.7-33.7); MCHC 34.1 g/dl (32.0-36.0); MEAN CELL VOLUME 91.8 fl (80-96); MEAN PLT VOLUME 7.9 fl (7.5-11.1); MONO % 7.2 % (3.8-10.2); NEUT % 50.1 % (42.8-82.8); PLATELET COUNT 291 10^3/uL (134-434); RBC 4.24 M/mm3 (3.60-5.2); RDW 12.9 % (11.6-15.6); WHITE BLOOD COUNT 6.8 K/mm3 (4.0-10.0)
[2023-04-24 09:25] LABS: POTASSIUM 4.2 mmol/L (3.5-5.1)
[2023-04-24 09:27] LABS: CALCIUM 9.8 mg/dL (8.5-10.1)
[2023-04-24 09:28] LABS: MAGNESIUM 2.6 mg/dL (1.8-2.4)
[2023-04-24 09:29] LABS: BLOOD UREA NITROGEN 17.1 mg/dL (7-18)
[2023-04-24 09:31] LABS: CREATININE 0.7 mg/dL (0.55-1.3)
[2023-04-24 09:32] LABS: BILIRUBIN,TOTAL 0.2 mg/dL (0.2-1)
[2023-04-24 09:33] LABS: TOT PROT 7.6 g/dl (6.4-8.2)
[2023-04-24 12:06] VITALS: BP 118/72
== END 2023-04-24 12:06 | disposition home or self-care (01) ==
LOC: JER 07:25
PROC: 3E033GC Introduction of Other Therapeutic Substance into Peripheral Vein, Percutaneous Approach (ICD-10-PCS; principal; 2023-04-24)
PROC: 3E033NZ Introduction of Analgesics, Hypnotics, Sedatives into Peripheral Vein, Percutaneous Approach (ICD-10-PCS; 2023-04-24)
PROC: 3E033GC Introduction of Other Therapeutic Substance into Peripheral Vein, Percutaneous Approach (ICD-10-PCS; 2023-04-24)
DX: R07.9 Chest pain, unspecified (principal); R06.02 Shortness of breath; R42 Dizziness and giddiness; R11.0 Nausea; Z20.822 Contact with and (suspected) exposure to COVID-19
CPT/HCPCS: 0241U-QW; 36415; 71045-TC-FY; 80053; 83735; 84484; 85025; 93005; 93010; 99285-25; J0131

== ENCOUNTER 2023-08-24 04:11 | Day surgery (SDC) | payer BC ==
[2023-08-22 13:41] VITALS: BMI 26.6
[2023-08-24] MEDS ORDERED: LIDOCAINE HCL/PF 1% SDV 5ML VIAL ONE (07:17)
[2023-08-24] MEDS ORDERED: BUPIVACAINE HCL/PF 0.75% 10 ML VIAL ONE (07:17)
[2023-08-24] MEDS: LIDOCAINE 1% P/F 10 MG/ML VIAL INF ONE (13:24)
[2023-08-24] MEDS: BUPIVACAINE HCL/PF 0.75% 10 ML VIAL NR ONE (13:24)
[2023-08-24 13:50] VITALS: RESP 18
[2023-08-24 14:33] VITALS: BP 135/79; PULSE 69; TEMP 97.9
[2023-08-24] MEDS ORDERED: ACETAMINOPHEN 500 MG TABLET (FP) PO PRN (17:05)
== END 2023-08-24 14:20 | disposition home or self-care (01) ==
LOC: JASU-SURG 04:11
PROVIDERS: ATTEND Pain Medicine Pain Medicine
PROC: 3E0T33Z Introduction of Anti-inflammatory into Peripheral Nerves and Plexi, Percutaneous Approach (ICD-10-PCS; 2023-08-24)
PROC: 3E0T3BZ Introduction of Anesthetic Agent into Peripheral Nerves and Plexi, Percutaneous Approach (ICD-10-PCS; principal; 2023-08-24 13:00)
DX: M47.816 Spondylosis without myelopathy or radiculopathy, lumbar region (principal)
CPT/HCPCS: 76000-TC-FY

== ENCOUNTER 2023-08-26 10:20 | Emergency (ER) | payer BC ==
[2023-08-26 10:31] VITALS: BP 134/88; PULSE 83; RESP 18; TEMP 98.3; BMI 24.5
[2023-08-26] MEDS ORDERED: ONDANSETRON 4 MG/2 ML VIAL ONE (11:43)
[2023-08-26] MEDS ORDERED: ACETAMINOPHEN INJECTION 100 ML IVPB ONE (11:43)
[2023-08-26] MEDS: ACETAMINOPHEN 1000 MG/100 ML BAG IVPB ONE (11:59)
[2023-08-26] MEDS: ONDANSETRON 4 MG/2 ML VIAL IVPUSH ONE (11:59)
[2023-08-26] MEDS: SODIUM CHLORIDE 1,000 ML IV STA ×2 (11:59→15:32)
[2023-08-26 12:16] LABS: BASO % 0.9 % (0-2.0); EOS % 2.8 % (0-4.5); HEMATOCRIT 41.2 % (32.4-45.2); HEMOGLOBIN 14.1 GM/dL (10.7-15.3); LYMPH % 41.4 % (8-40); MCH 31.7 pg (25.7-33.7); MCHC 34.2 g/dl (32.0-36.0); MEAN CELL VOLUME 92.8 fl (80-96); MEAN PLT VOLUME 8.1 fl (7.5-11.1); MONO % 7.5 % (3.8-10.2); NEUT % 47.4 % (42.8-82.8); PH,URINE 5.5 (5.0-8.0); PLATELET COUNT 336 10^3/uL (134-434); RBC 4.44 M/mm3 (3.60-5.2); RDW 13.1 % (11.6-15.6); URINE APPEARANCE CLEAR; URINE BILIRUBIN NEGATIVE (NEGATIVE); URINE COLOR YELLOW; URINE GLUCOSE (UA) NEGATIVE (NEGATIVE); URINE KETONE NEGATIVE (NEGATIVE); URINE LEUK ESTERASE NEGATIVE (NEGATIVE); URINE NITRITE NEGATIVE (NEGATIVE); URINE PROTEIN NEGATIVE (NEGATIVE); URINE UROBILINOGEN 0.2 mg/dL (0.2-1.0); WHITE BLOOD COUNT 6.9 K/mm3 (4.0-10.0)
[2023-08-26 13:06] LABS: CHLORIDE 109 mmol/L (98-107); SODIUM 138 mmol/L (136-145)
[2023-08-26 13:08] LABS: CALCIUM 9.7 mg/dL (8.5-10.1)
[2023-08-26 13:09] LABS: ALBUMIN 4.1 g/dl (3.4-5.0); BLOOD UREA NITROGEN 13.8 mg/dL (7-18); CO2 27 mmol/L (21-32); GLUCOSE,RANDOM 94 mg/dL (74-106); MAGNESIUM 2.5 mg/dL (1.8-2.4)
[2023-08-26 13:12] LABS: CREATININE 0.7 mg/dL (0.55-1.3); SGOT/AST 53 U/L (15-37); SGPT/ALT 20 U/L (13-61)
[2023-08-26 13:14] LABS: BILIRUBIN,TOTAL 0.4 mg/dL (0.2-1); TOT PROT 8.2 g/dl (6.4-8.2)
[2023-08-26 13:15] LABS: ALK PHOS 166 U/L (45-117); ANION GAP 3 mmol/L (4-13); POTASSIUM 7.6 mmol/L (3.5-5.1)
[2023-08-26 14:28] LABS: POTASSIUM 4.3 mmol/L (3.5-5.1)
[2023-08-26 14:30] LABS: MAGNESIUM 2.2 mg/dL (1.8-2.4)
[2023-08-26] MEDS ORDERED: KETOROLAC TROMETHAMINE 30 MG/1 ML VIAL IVPUSH ONE (14:32)
[2023-08-26] MEDS ORDERED: KETOROLAC TROMETHAMINE 30 MG/1 ML VIAL ONE (15:21)
[2023-08-26] MEDS ORDERED: METOCLOPRAMIDE HCL INJECTION 10 MG/2 ML VIAL ONE (15:21)
[2023-08-26] MEDS: METOCLOPRAMIDE HCL INJECTION 10 MG/2 ML VIAL IVPUSH ONE (15:32)
[2023-08-26] MEDS: KETOROLAC TROMETHAMINE 30 MG/1 ML VIAL IVPUSH ONE (15:32)
== END 2023-08-26 17:05 | disposition home or self-care (01) ==
LOC: JER 10:20
PROC: 3E033NZ Introduction of Analgesics, Hypnotics, Sedatives into Peripheral Vein, Percutaneous Approach (ICD-10-PCS; principal; 2023-08-26)
PROC: 3E0333Z Introduction of Anti-inflammatory into Peripheral Vein, Percutaneous Approach (ICD-10-PCS; 2023-08-26)
PROC: 3E033GC Introduction of Other Therapeutic Substance into Peripheral Vein, Percutaneous Approach (ICD-10-PCS; 2023-08-26)
PROC: 3E033GC Introduction of Other Therapeutic Substance into Peripheral Vein, Percutaneous Approach (ICD-10-PCS; 2023-08-26)
PROC: 3E0337Z Introduction of Electrolytic and Water Balance Substance into Peripheral Vein, Percutaneous Approach (ICD-10-PCS; 2023-08-26)
PROC: 3E0337Z Introduction of Electrolytic and Water Balance Substance into Peripheral Vein, Percutaneous Approach (ICD-10-PCS; 2023-08-26)
DX: R51.9 Headache, unspecified (principal); R11.2 Nausea with vomiting, unspecified; R42 Dizziness and giddiness; Z20.822 Contact with and (suspected) exposure to COVID-19
CPT/HCPCS: 0241U-QW; 36415; 70450-TC; 70496-TC; 70498-TC; 80053; 81003; 83690; 83735; 84132; 84484; 85025; 87086; 93005; 93010; 99285-25; J0131

== ENCOUNTER 2023-09-22 04:59 | Day surgery (SDC) | payer BC ==
[2023-09-20 14:07] VITALS: BMI 26.6
[2023-09-22] MEDS: LIDOCAINE HCL 1% PRESERVATIVE FREE - 30ML VIAL IJ ONE
[2023-09-22] MEDS: IOHEXOL 180 MG/1 ML ML IJ ONE
[2023-09-22] MEDS ORDERED: LIDOCAINE HCL/PF 1% SDV 5ML VIAL ONE (07:10)
[2023-09-22] MEDS: BUPIVACAINE HCL/PF 0.5% (5 MG/ML) 30 ML VIAL IJ ONE ×2 (11:05)
[2023-09-22] MEDS ORDERED: ACETAMINOPHEN 500 MG TABLET (FP) PO PRN (13:39)
[2023-09-22 14:26] VITALS: RESP 18; TEMP 97.8
[2023-09-22 15:12] VITALS: BP 145/70; PULSE 60
== END 2023-09-22 12:40 | disposition home or self-care (01) ==
LOC: JASU-SURG 04:59
PROVIDERS: ATTEND Pain Medicine Pain Medicine
PROC: 3E0T33Z Introduction of Anti-inflammatory into Peripheral Nerves and Plexi, Percutaneous Approach (ICD-10-PCS; 2023-09-22)
PROC: 3E0T3BZ Introduction of Anesthetic Agent into Peripheral Nerves and Plexi, Percutaneous Approach (ICD-10-PCS; principal; 2023-09-22 10:30)
DX: M47.812 Spondylosis without myelopathy or radiculopathy, cervical region (principal)
CPT/HCPCS: 76000-TC-FY

== ENCOUNTER 2023-10-27 04:42 | Day surgery (SDC) | payer BC ==
[2023-10-27] MEDS ORDERED: LIDOCAINE HCL/PF 1% SDV 5ML VIAL ONE (07:33)
[2023-10-27] MEDS ORDERED: BUPIVACAINE HCL/PF 0.5% (5MG/ML) 10 ML VIAL ONE ×2 (07:33)
[2023-10-27 09:22] VITALS: RESP 20
[2023-10-27 12:11] VITALS: BP 115/72; PULSE 60; TEMP 97.2
== END 2023-10-27 11:50 | disposition home or self-care (01) ==
LOC: JASU-SURG 04:42
PROVIDERS: ATTEND Pain Medicine Pain Medicine
PROC: 3E0T3BZ Introduction of Anesthetic Agent into Peripheral Nerves and Plexi, Percutaneous Approach (ICD-10-PCS; principal; 2023-10-27 11:08)
DX: M47.812 Spondylosis without myelopathy or radiculopathy, cervical region (principal)
CPT/HCPCS: 76000-TC-FY

== ENCOUNTER 2024-04-15 14:43 | Emergency (ER) | payer BC ==
[2024-04-15 14:53] VITALS: RESP 18; TEMP 98.4; BMI 25.3
[2024-04-15] MEDS ORDERED: ACETAMINOPHEN INJECTION 100 ML ONE (16:50)
[2024-04-15] MEDS: ACETAMINOPHEN 1000 MG/100 ML BAG IVPB ONE (16:57)
[2024-04-15 17:09] LABS: BASO % 0.5 % (0-2.0); EOS % 2.7 % (0-4.5); HEMATOCRIT 41.1 % (32.4-45.2); LYMPH % 32.2 % (8-40); MCH 31.1 pg (25.7-33.7); MCHC 34.1 g/dl (32.0-36.0); MEAN CELL VOLUME 91.3 fl (80-96); MEAN PLT VOLUME 7.7 fl (7.5-11.1); MONO % 7.6 % (3.8-10.2); PLATELET COUNT 304 10^3/uL (134-434); RBC 4.51 M/mm3 (3.60-5.2); RDW 13.4 % (11.6-15.6); WHITE BLOOD COUNT 9.5 K/mm3 (4.0-10.0)
[2024-04-15 17:14] LABS: EPI CELLS 8 /uL (0-25.1); HYALINE CASTS 0 /uL (0-3.1); PH,URINE 5.5 (5.0-8.0); URINE APPEARANCE CLOUDY; URINE BACTERIA 5845 /uL (0-1359); URINE BILIRUBIN NEGATIVE (NEGATIVE); URINE COLOR YELLOW; URINE GLUCOSE (UA) NEGATIVE (NEGATIVE); URINE KETONE NEGATIVE (NEGATIVE); URINE LEUK ESTERASE 2+ (NEGATIVE); URINE NITRITE NEGATIVE (NEGATIVE); URINE PROTEIN TRACE (NEGATIVE); URINE RBC 841 /uL (0-23.9); URINE UROBILINOGEN 0.2 mg/dL (0.2-1.0); URINE WBC 2068 /uL (0-25.8)
[2024-04-15 17:20] LABS: INR 1.01 (0.83-1.09); PROTHROMBIN TIME (PATIENT) 11.1 SEC (9.7-13.0)
[2024-04-15 17:23] LABS: ACTIVATED PTT 29.6 SECONDS (25.2-36.5)
[2024-04-15 17:31] LABS: POTASSIUM 4.9 mmol/L (3.5-5.1)
[2024-04-15 17:34] LABS: ALBUMIN 4.3 g/dl (3.4-5.0); CALCIUM 10.1 mg/dL (8.5-10.1)
[2024-04-15 17:35] LABS: BLOOD UREA NITROGEN 14.4 mg/dL (7-18)
[2024-04-15 17:38] LABS: CREATININE 0.7 mg/dL (0.55-1.3)
[2024-04-15 17:39] LABS: BILIRUBIN,TOTAL 0.3 mg/dL (0.2-1)
[2024-04-15 17:40] LABS: TOT PROT 7.9 g/dl (6.4-8.2)
[2024-04-15] MEDS ORDERED: CEFTRIAXONE 1 G/50 ML PREMIX 50 ML IVPB ONE (19:29)
[2024-04-15 20:56] VITALS: BP 131/84; PULSE 72
== END 2024-04-15 20:56 | disposition home or self-care (01) ==
LOC: JER 14:43
PROC: 3E033NZ Introduction of Analgesics, Hypnotics, Sedatives into Peripheral Vein, Percutaneous Approach (ICD-10-PCS; principal; 2024-04-15)
PROC: 3E03329 Introduction of Other Anti-infective into Peripheral Vein, Percutaneous Approach (ICD-10-PCS; 2024-04-15)
DX: N39.0 Urinary tract infection, site not specified (principal); R10.9 Unspecified abdominal pain; M54.50 Low back pain, unspecified; R30.0 Dysuria
CPT/HCPCS: 36415; 74176-TC; 80053; 81003; 85025; 85610; 85730; 86850; 86900; 86901; 87086; 87186; 99285-25; J0131

== ENCOUNTER 2024-08-02 15:22 | Emergency (ER) | payer BC ==
[2024-08-02 15:31] VITALS: BP 127/62; PULSE 92; RESP 20; TEMP 98; BMI 25.3
== END 2024-08-02 18:17 | disposition home or self-care (01) ==
LOC: JER 15:22
DX: H43.12 Vitreous hemorrhage, left eye (principal)
CPT/HCPCS: 76512; 99284-25